=== PATIENT | male | born 1940 | race Caucasian/White ===

== ENCOUNTER 2017-04-29 18:40 | Observation (INO) | payer MEDICARE ==
[2017-04-29 19:24] LABS: CHLORIDE,CL 102 mEq/L (98-106); SODIUM,NA 141 mEq/L (136-145)
--- NOTE | 2017-04-29 20:00 | EDM.PDOC ---
ED HPI GENERAL MEDICAL PROBLEM - General Chief Complaint: General Stated Complaint: left facial swelling Time Seen by Provider: 04/29/17 18:55 Source of Information: Reports: Patient History Limitations: Reports: No Limitations - History of Present Illness INITIAL COMMENTS - FREE TEXT/NARRATIVE: Conor is a 76 yo male who presents to the ER via private vehicle with complaints of left facial droop. Conor states around 9:00am this morning he noticed his left eye to be watering. States he ate breakfast fine; however, at lunch he found it difficult to chew on the left side. At 2:00pm he was unable to drink out of his mouth on the left side and family noticed his left face to be drooping. He states he called into the clinic to make an appointment and scheduled one for later this week. Family this evening were insistent he come into the ER for further evaluation. States he has noticed his left lower leg to be numb. He has a history of CABG X 3 in 2008. States he has had high blood pressure for many years now as well. Currently takes 4 blood pressure medications. States he quit smoking in 1990. Admits to moderate amount of caffeine per day to include on average; 2 cups of coffee and 6 soda's per day. Location: Reports: Face, Lower Extremity, Left - Related Data Allergies Allergy/AdvReac Type Severity Reaction Status Date / Time amlodipine [From Norvasc] Allergy Unknown Confusion Verified 08/20/16 18:42 morphine Allergy Unknown Itching Verified 08/20/16 18:42 nifedipine [From Procardia] Allergy Unknown Confusion Verified 08/20/16 18:42 Sulfa (Sulfonamide Allergy Unknown Renal Verified 08/20/16 18:42 Antibiotics) Failure sulfamethoxazole Allergy Unknown Renal Verified 08/20/16 18:42 [From Bactrim] Failure trimethoprim [From Bactrim] Allergy Unknown Renal Verified 08/20/16 18:42 Failure cyclobenzaprine Allergy Other Verified 08/20/16 18:42 [From Flexeril] Home Meds: Home Meds Acetaminophen [Tylenol Extra Strength] 500 mg PO ASDIRECTED PRN 08/20/16 [ History] Ascorbic Acid [Vitamin C] 1 tab PO DAILY 08/20/16 [History] Aspirin 325 mg PO DAILY 08/20/16 [History] Docusate Sodium 100 mg PO BID 08/20/16 [History] Furosemide [Lasix] 40 mg PO DAILY 08/20/16 [History] Lisinopril [Prinivil] 10 mg PO BID 08/20/16 [History] Metoprolol Tartrate 50 mg PO BID 08/20/16 [History] Simvastatin [Zocor] 40 mg PO BEDTIME 08/20/16 [History] cloNIDine [Catapres] 0.2 mg PO BID 08/20/16 [History] Past Medical History Cardiovascular History: Reports: Bypass, High Cholesterol, Hypertension Respiratory History: Reports: SOB Hematologic History: Reports: Blood Transfusion(s) Oncologic (Cancer) History: Reports: Prostate Dermatologic History: Reports: Other (See Below) Other Dermatologic History: shingles - Infectious Disease History Infectious Disease History: Reports: MRSA, Shingles - Past Surgical History Cardiovascular Surgical History: Reports: Other (See Below) Other Cardiovascular Surgeries/Procedures: triple bypass surgery GI Surgical History: Reports: Hernia, Inguinal Male Surgical History: Reports: Prostate Biopsy, Prostatectomy Other Male Surgeries/Procedures: prostate cancer Musculoskeletal Surgical History: Reports: Other (See Below) Other Musculoskeletal Surgeries/Procedures:: back surgery Social & Family History - Tobacco Use Smoking Status *Q: Former Smoker Used Tobacco, but Quit: Yes Month Tobacco Last Used: 1990 - Caffeine Use Caffeine Use: Reports: Coffee - Recreational Drug Use Recreational Drug Use: No ED ROS GENERAL - Review of Systems Review Of Systems: See Below Constitutional: Denies: Fever, Chills, Weakness, Decreased Appetite HEENT: Reports: Eye Discharge (watery). Denies: Eye Pain, Vision Change Respiratory: Reports: Shortness of Breath (chronic). Denies: Wheezing, Cough Cardiovascular: Reports: Blood Pressure Problem. Denies: Chest Pain, Lightheadedness, Palpitations, Syncope GI/Abdominal: Denies: Abdominal Pain, Bloody Stool, Constipation, Diarrhea, Nausea, Vomiting : Reports: No Symptoms Musculoskeletal: Reports: No Symptoms Skin: Reports: No Symptoms Neurological: Reports: Numbness (left lower extremity). Denies: Confusion, Seizure, Syncope, Weakness Psychiatric: Reports: No Symptoms ED EXAM, GENERAL - Physical Exam Exam: See Below Exam Limited By: No Limitations General Appearance: Alert, No Apparent Distress (sitting comfortably on examination cart) Eye Exam: Left Eye: Proptosis, Bilateral Eye: EOMI, PERRL Ears: Normal External Exam, Normal Canal, Hearing Grossly Normal, Normal TMs Ear Exam: Bilateral Ear: Auricle Normal, Canal Normal, TM normal Nose: Normal Inspection, No Blood Throat/Mouth: Normal Lips, Normal Gums, Normal Oropharynx, Normal Voice, No Airway Compromise, Other (left lip droop) Head: Atraumatic, Normocephalic Neck: Normal Inspection, Supple. No: Carotid Bruit, Lymphadenopathy (L), Lymphadenopathy (R) Respiratory/Chest: No Respiratory Distress, Lungs Clear, No Accessory Muscle Use , Decreased Breath Sounds. No: Crackles, Rales, Rhonchi, Wheezing Cardiovascular: Normal Peripheral Pulses, Regular Rate, Rhythm, No Edema, No Murmur GI/Abdominal: Normal Bowel Sounds, Soft, Non-Tender, No Distention, No Abnormal Bruit Neurological: Alert, Oriented, Normal Cognition, Sensory/Motor Deficit (left lower leg weakness; drifts down but is able to hold against gravity. Coordination is clumsy in left finger to nose test. Diminished sensation to left lower extremity which terminates above the left knee. Normal sensation to left thigh and left upper extremity. ), Other (Obvious left sided facial droop. Unable to raise eyebrow on left. Able to shut left eye however unable to keep shut against resistance. ). No: Inattentive, Confused, Disoriented, Slow to Respond, Unresponsive, Memory Loss Remote Events, Memory Loss Recent Events Psychiatric: Normal Affect, Normal Mood Skin Exam: Warm, Dry, Intact, Normal Color Course - Vital Signs Last Recorded V/S: Last Vital Signs Temp 98.6 F 04/29/17 18:48 Pulse 71 04/29/17 19:33 Resp 18 04/29/17 19:12 BP 185/91 H 04/29/17 19:33 Pulse Ox 96 04/29/17 19:12 - Orders/Labs/Meds Orders: Active Orders 24 hr Category Date Time Status Head wo Cont [CT] Stat Exams 04/29/17 18:54 Taken INR,PT,PROTHROMBIN TIME [COAG] Stat Lab 04/29/17 18:54 Ordered PTT,PARTIAL THROMBOPLSTIN TIME [COAG] Stat Lab 04/29/17 18:54 Ordered UA W/MICROSCOPIC [URIN] Stat Lab 04/29/17 18:54 Uncollected Labs: Laboratory Tests 04/29/17 04/29/17 Range/Units 18:54 18:54 WBC 6.7 (5.0-10.0) 10^3/uL RBC 4.64 (4.50-6.00) 10^6/uL Hgb 14.8 (14.0-18.0) g/dL Hct 41.4 (40.0-54.0) % MCV 89.2 (82.0-94.0) fL MCH 31.9 (27.0-32.0) pg MCHC 35.7 (33.0-38.0) g/dL RDW Coeff of [place] 13.6 (11.0-15.0) % Plt Count 133 L (150-400) 10^3/uL Neut % (Auto) 56.1 (35-85) % Lymph % (Auto) 30.9 (10-55) % Jewell % (Auto) 9.6 (0-16) % Eos % (Auto) 2.8 (0-5) % Baso % (Auto) 0.6 (0-3) % Neut # (Auto) 3.74 (1.80-7.00) 10^3/uL Lymph # (Auto) 2.06 (1.00-4.80) 10^3/uL Jewell # (Auto) 0.64 (0.00-0.80) 10^3/uL Eos # (Auto) 0.19 (0.00-0.45) 10^3/uL Baso # (Auto) 0.04 10^3/uL Sodium 141 (136-145) mEq/L Potassium 3.6 (3.5-5.0) mEq/L Chloride 102 (98-106) mEq/L Carbon Dioxide 30 (21-32) mmol/L BUN 21 H (7-18) mg/dL Creatinine 1.4 H (0.7-1.3) mg/dL Est Cr Clr Drug Dosing 42.62 mL/min Estimated GFR (MDRD) 49 L (>=60) mL/min Glucose 119 H (75-99) mg/dL Calcium 9.0 (8.4-10.1) mg/dL Creatine Kinase 218 (35-232) U/L Troponin I < 0.017 (0.00-0.06) ng/mL Meds: Medications Discontinued Medications Generic Name Dose Route Start Last Admin Trade Name Freq PRN Reason Stop Dose Admin Alteplase, Recombinant Confirm 04/29/17 19:10 Activase Administered 04/29/17 19:11 Dose 100 mg .ROUTE .STK-MED ONE Departure - Departure Time of Disposition: 20:08 Disposition: Refer to Observation Condition: Good Clinical Impression: Serra's palsy, CVA, Cerebrovascular accident, Uncontrolled hypertension - Discharge Information - Problem List & Annotations (1) Uncontrolled hypertension SNOMED Code(s): 66126577 Code(s): I10 - ESSENTIAL (PRIMARY) HYPERTENSION Status: Acute Current Visit: Yes (2) Serra's palsy SNOMED Code(s): 497845107 Code(s): G51.0 - SERRA'S PALSY Status: Acute Current Visit: Yes (3) CVA, Cerebrovascular accident SNOMED Code(s): 521168340 Code(s): I63.9 - CEREBRAL INFARCTION, UNSPECIFIED Status: Acute Current Visit: Yes - My Orders Last 24 Hours: My Active Orders 04/29/17 18:54 Head wo Cont [CT] Stat INR,PT,PROTHROMBIN TIME [COAG] Stat PTT,PARTIAL THROMBOPLSTIN TIME [COAG] Stat UA W/MICROSCOPIC [URIN] Stat - Assessment/Plan Admission H&P: Please use this note as an admission H&P Last 24 Hours: My Active Orders 04/29/17 18:54 Head wo Cont [CT] Stat INR,PT,PROTHROMBIN TIME [COAG] Stat PTT,PARTIAL THROMBOPLSTIN TIME [COAG] Stat UA W/MICROSCOPIC [URIN] Stat Plan: EKG showed NSR at 74bpm. Laboratory work was stable. CT Head was negative for any acute changes per radiologist at [facility]. NIHSS score of 6. consulted with Dr. Leigh, neurologist, at [facility] in [place]. Dr. Leigh recommended observation tonight with follow up in clinic tomorrow. His clinic number was given and suppose to call his office between 8:00 and 8:30 tomorrow morning to confirm appointment. Dr. Leigh felt it was past the window to be given TPA and felt there was no further treatment tonight, besides monitoring blood pressure. Consulted with Dr. Vargas in regards to Conor condition and will admit to his services under observation. Dr. Vargas agreed with admission. Conor was advised of current plan and was in agreement.
[2017-04-29] MEDS ORDERED: Sodium Chloride 0.9% 10 ML Syringe FLUSH PRN (20:28)
[2017-04-29] MEDS ORDERED: Acetaminophen 500 MG Tab PO PRN (20:28)
[2017-04-29] MEDS ORDERED: Enoxaparin 40 MG/0.4 ML Syringe SUBCUT SCH (21:00)
[2017-04-29] MEDS ORDERED: cloNIDine 0.1 MG Tab PO SCH ×2 (21:00→22:30)
[2017-04-29] MEDS ORDERED: Simvastatin 40 MG Tab PO SCH (21:00)
[2017-04-29] MEDS: Metoprolol Tartrate 50 MG Tab PO SCH (21:58)
[2017-04-29] MEDS: Docusate Sodium 100 MG Cap PO SCH (22:36)
[2017-04-29] MEDS: Lisinopril 10 MG Tab PO SCH (22:36)
[2017-04-29] MEDS ORDERED: Enoxaparin 40 MG/0.4 ML Syringe ONE (22:43)
[2017-04-30 07:47] VITALS: BP 153/81
[2017-04-30] MEDS ORDERED: Isosorbide Mononitrate 30 MG Tab.ER PO SCH (08:00)
[2017-04-30] MEDS ORDERED: Aspirin 325 MG Tab PO SCH (08:00)
[2017-04-30] MEDS ORDERED: Furosemide 40 MG Tab PO SCH (08:00)
[2017-04-30] MEDS: Docusate Sodium 100 MG Cap PO SCH (09:14)
[2017-04-30] MEDS: Metoprolol Tartrate 50 MG Tab PO SCH (09:15)
[2017-04-30] MEDS: Lisinopril 10 MG Tab PO SCH (09:15)
--- NOTE | 2017-04-30 20:25 | PCM.DCSUM1 ---
Discharge Summary - Hospital Course Free Text/Narrative:: Patient presented to ER with concerns of left sided facial droop and numbness in his left leg. Does have history of hypertension, takes several meds for this. Initial work up was negative in regards to lab and CT of head. Kali did consult with Dr. Davis, neurologist, and advised to admit and watch neurological status but overall exam was suggestive for Suh's Palsy. - Discharge Data Discharge Date: 04/30/17 Discharge Disposition: Home, Self-Care 01 Condition: Good - Patient Summary/Data Complications: none Hospital Course: patient status stable. Left leg numbness resolved. States is ambulating well, no weakness noted in left leg. Continues to have left sided weakness, significant for Suh's Palsy. Blood pressure stable. Dr. Davis's office contacted this am and will see this afternoon for consultation. - Patient Instructions Diet: Usual Diet as Tolerated Activity: As Tolerated - Discharge Plan Home Medications: Home Meds Acetaminophen [Tylenol Extra Strength] 500 mg PO ASDIRECTED PRN 08/20/16 [ History] Ascorbic Acid [Vitamin C] 1 tab PO DAILY 08/20/16 [History] Aspirin 325 mg PO DAILY 08/20/16 [History] Docusate Sodium 100 mg PO BID 08/20/16 [History] Furosemide [Lasix] 40 mg PO DAILY 08/20/16 [History] Lisinopril [Prinivil] 10 mg PO BID 08/20/16 [History] Metoprolol Tartrate 50 mg PO BID 08/20/16 [History] Simvastatin [Zocor] 40 mg PO BEDTIME 08/20/16 [History] cloNIDine [Catapres] 0.2 mg PO BID 08/20/16 [History] Isosorbide Mononitrate [Isosorbide Mononitrate ER] 30 mg PO DAILY 04/29/17 [ History] Forms: ED Department Discharge Referrals: Ozzy Vargas MD [Primary Care Provider] - Jeremiah Davis MD [Ordering Only Provider] - (Follow up with Dr. Davis today at 1 pm per his direction) - General Info Date of Service: 04/30/17 Admission Dx/Problem (Free Text: Suh's Palsy R/O CVA Functional Status: Reports: Pain Controlled, Tolerating Diet, Ambulating - Review of Systems General: Denies: Fever, Weakness, Fatigue HEENT: Reports: No Symptoms Pulmonary: Denies: Shortness of Breath, Cough Cardiovascular: Denies: Chest Pain, Edema, Lightheadedness Gastrointestinal: Reports: Vomiting. Denies: Abdominal Pain, Nausea Genitourinary: Reports: No Symptoms Musculoskeletal: Reports: No Symptoms Neurological: Denies: Other (Patient complains of numbness to left cheek, "drools with eating". ) Psychiatric: Reports: No Symptoms - Patient Data Vitals - Most Recent: Last Vital Signs Temp 97.7 F 04/30/17 08:00 Pulse 60 04/30/17 08:00 Resp 20 04/30/17 08:00 BP 153/81 H 04/30/17 08:00 Pulse Ox 95 04/30/17 08:00 Weight - Most Recent: 247 lb 12.8 oz Med Orders - Current: Current Medications Discontinued Medications Acetaminophen (Tylenol Extra Strength) 500 mg PO Q6H PRN PRN Reason: Pain Last Admin: 04/30/17 00:18 Dose: 500 mg Alteplase, Recombinant (Activase) Confirm Administered Dose 100 mg .ROUTE .STABB- [employer] ONE Stop: 04/29/17 19:11 Last Admin: 04/29/17 20:50 Dose: Not Given Aspirin (Aspirin) 325 mg PO DAILY [facility] Last Admin: 04/30/17 09:14 Dose: Not Given Clonidine HCl (Catapres) 0.2 mg PO BID [facility] Last Admin: 04/29/17 22:35 Dose: Not Given Clonidine HCl (Catapres) 0.1 mg PO DAILY [facility] Last Admin: 04/29/17 22:36 Dose: 0.1 mg Docusate Sodium (Colace) 100 mg PO BID [facility] Last Admin: 04/30/17 09:14 Dose: Not Given Enoxaparin Sodium (Lovenox) 40 mg SUBCUT DAILY@1999 [facility] Last Admin: 04/29/17 23:00 Dose: 40 mg Enoxaparin Sodium (Lovenox) 40 mg SUBCUT DAILY@1999 [facility] Enoxaparin Sodium (Lovenox) Confirm Administered Dose 40 mg .ROUTE .STK-MED ONE Stop: 04/29/17 22:44 Last Admin: 04/29/17 23:01 Dose: Not Given Furosemide (Lasix) 40 mg PO DAILY [facility] Last Admin: 10/04/17 09:15 Dose: Not Given Isosorbide Mononitrate (Imdur) 30 mg PO DAILY [facility] Last Admin: 04/30/17 09:14 Dose: Not Given Lisinopril (Prinivil) 10 mg PO BID [facility] Last Admin: 04/30/17 09:15 Dose: Not Given Metoprolol Tartrate (Lopressor) 50 mg PO BID [facility] Last Admin: 04/30/17 09:15 Dose: Not Given Simvastatin (Zocor) 40 mg PO BEDTIME [facility] Last Admin: 04/29/17 21:58 Dose: 40 mg Sodium Chloride (Saline Flush) 10 ml FLUSH ASDIRECTED PRN PRN Reason: Keep Vein Open - Exam General: Reports: Alert, Oriented HEENT: Reports: Mucous Membr. Moist/Howe Neck: Reports: Supple Lungs: Reports: Clear to Auscultation, Normal Respiratory Effort Cardiovascular: Reports: Regular Rate, Regular Rhythm GI/Abdominal Exam: Normal Bowel Sounds, Soft, Non-Tender Extremities: Normal Inspection, Normal Range of Motion, Other Skin: Reports: Warm, Dry Neurological: Reports: Normal Gait, Other (no wrinkling noted to left forehead; left sided facial drooping; unable to close left eye lid fully) *Q Meaningful Use (DIS) - VTE *Q VTE Criteria *Q: - Stroke *Q Stroke Criteria *Q: - AMI *Q AMI Criteria *Q:
[2017-04-30] MEDS ORDERED: Enoxaparin 40 MG/0.4 ML Syringe SUBCUT SCH (21:00)
== END 2017-04-30 10:35 | disposition home or self-care (01) ==
LOC: CC.ED 18:40 → UNDOADMOB 20:20 → CC.MS 20:20
PROVIDERS: ADMIT Physician Assistant Medical; ATTEND Family Medicine
DX: G51.0 Bell's palsy (principal); I10 Essential (primary) hypertension; I63.9 Cerebral infarction, unspecified; E78.00 Pure hypercholesterolemia, unspecified; Z88.1 Allergy status to other antibiotic agents; Z88.2 Allergy status to sulfonamides; Z88.8 Allergy status to other drugs, medicaments and biological substances; Z79.82 Long term (current) use of aspirin; Z79.899 Other long term (current) drug therapy; Z98.890 Other specified postprocedural states; Z87.891 Personal history of nicotine dependence
CPT/HCPCS: 36415; 70450; 80048; 81001; 82550; 84484; 85025; 85610; 85730; 93005; 96372; 99285; A9270; G0378; J1650; 93010; 99217; 99220

== ENCOUNTER 2017-11-04 21:55 | Emergency (ER) | payer MEDICARE ==
[2017-11-04] MEDS ORDERED: Nitroglycerin 0.4 MG Tab.SL SL PRN (22:11)
[2017-11-04 22:33] LABS: CHLORIDE,CL 103 mEq/L (98-106); SODIUM,NA 142 mEq/L (136-145)
--- NOTE | 2017-11-04 23:11 | EDM.PDOC ---
ED HPI GENERAL MEDICAL PROBLEM - General Chief Complaint: Chest Pain Stated Complaint: CHEST PAIN Time Seen by Provider: 11/04/17 22:25 Source of Information: Reports: Patient History Limitations: Reports: No Limitations - History of Present Illness INITIAL COMMENTS - FREE TEXT/NARRATIVE: Conor is a 77 yo male who presents to the ER [facility] via private vehicle with complaints of left sided anterior chest pain. He states whenever he takes in a deep breath he will get the pain. Admits it started around 6:00pm while working at the [employer]. He admits it doesn't worsen with exertion, states only when he takes a deep breath. The pain has improved since onset. If he doesn 't take a deep breath the pain is not there at all. Admits it doesn't happen as often anymore. Has a history of cardiac disease with prior CABG so wanted to make sure it isn't heart related. He admits to having uncontrolled blood pressure for quite some time and takes 4 medicines for it. States he has otherwise has been dealing with some stress and anxiety from work. Feels this has a lot to do with it. Is requesting a note for [facility] and tomorrow, which he feels some rest would help. Onset Date: 11/04/17 Onset Time: 18:00 Duration: Improving Location: Reports: Chest Quality: Reports: Sharp Improves with: Reports: Other (shallow inspiration) Worsens with: Reports: Breathing (deep inspiration) Associated Symptoms: Reports: Chest Pain. Denies: Cough, cough w sputum, Fever/ Chills, Nausea/Vomiting, Shortness of Breath - Related Data Allergies Allergy/AdvReac Type Severity Reaction Status Date / Time amlodipine [From Norvasc] Allergy Unknown Confusion Verified 11/04/17 22:22 morphine Allergy Unknown Itching Verified 11/04/17 22:22 nifedipine [From Procardia] Allergy Unknown Confusion Verified 11/04/17 22:22 Sulfa (Sulfonamide Allergy Unknown Renal Verified 11/04/17 22:22 Antibiotics) Failure sulfamethoxazole Allergy Unknown Renal Verified 11/04/17 22:22 [From Bactrim] Failure trimethoprim [From Bactrim] Allergy Unknown Renal Verified 11/04/17 22:22 Failure cyclobenzaprine Allergy Other Verified 11/04/17 22:22 [From Flexeril] Home Meds: Home Meds Acetaminophen [Tylenol Extra Strength] 500 mg PO ASDIRECTED PRN 08/20/16 [ History] Ascorbic Acid [Vitamin C] 1 tab PO DAILY 08/20/16 [History] Aspirin 325 mg PO DAILY 08/20/16 [History] Docusate Sodium 100 mg PO BID 08/20/16 [History] Furosemide [Lasix] 40 mg PO DAILY 08/20/16 [History] Lisinopril [Prinivil] 20 mg PO DAILY 08/20/16 [History] Metoprolol Tartrate 50 mg PO BID 08/20/16 [History] Simvastatin [Zocor] 40 mg PO BEDTIME 08/20/16 [History] Isosorbide Mononitrate [Isosorbide Mononitrate ER] 30 mg PO DAILY 04/29/17 [ History] Brimonidine Tartrate [Alphagan P 0.1% Ophth Soln] 1 drop EYEBOTH Q12HR 11/04/17 [History] Brimonidine Tartrate [Brimonidine Tartrate 0.2% Ophth Soln] 1 drop OP Q12HR 05/14 [History] Latanoprost [Xalatan] 1 drop PO BEDTIME 11/04/17 [History] Neomycin/Polymyxin B Sulf/HC [Qlywmnfo-Nwlz-EH Eye Drops] 1 drop OP DAILY [History] Polyethylene Glycol 3350 [MiraLAX] 17 gm PO ASDIRECTED PRN 11/04/17 [History] Past Medical History Cardiovascular History: Reports: Bypass, High Cholesterol, Hypertension Respiratory History: Reports: SOB Neurological History: Reports: Other (See Below) (Suh's palsy) Hematologic History: Reports: Blood Transfusion(s) Oncologic (Cancer) History: Reports: Prostate Dermatologic History: Reports: Other (See Below) Other Dermatologic History: shingles - Infectious Disease History Infectious Disease History: Reports: MRSA, Shingles - Past Surgical History Cardiovascular Surgical History: Reports: Other (See Below) Other Cardiovascular Surgeries/Procedures: triple bypass surgery GI Surgical History: Reports: Hernia, Inguinal Male Surgical History: Reports: Prostate Biopsy, Prostatectomy Other Male Surgeries/Procedures: prostate cancer Musculoskeletal Surgical History: Reports: Other (See Below) Other Musculoskeletal Surgeries/Procedures:: back surgery Social & Family History - Tobacco Use Smoking Status *Q: Former Smoker Used Tobacco, but Quit: Yes Month/Year Tobacco Last Used: 1990 - Caffeine Use Caffeine Use: Reports: Coffee - Recreational Drug Use Recreational Drug Use: No ED ROS GENERAL - Review of Systems Review Of Systems: See Below Constitutional: Denies: Fever, Chills HEENT: Reports: No Symptoms Respiratory: Reports: Pleuritic Chest Pain. Denies: Shortness of Breath, Wheezing, Cough Cardiovascular: Reports: Chest Pain, Blood Pressure Problem. Denies: Dyspnea on Exertion, Edema, Lightheadedness, Palpitations GI/Abdominal: Reports: No Symptoms : Reports: No Symptoms Musculoskeletal: Denies: Shoulder Pain, Arm Pain Skin: Reports: No Symptoms. Denies: Diaphoresis Neurological: Reports: No Symptoms Psychiatric: Reports: Anxiety ED EXAM, GENERAL - Physical Exam Exam: See Below Exam Limited By: No Limitations General Appearance: Alert, WD/WN, No Apparent Distress Ears: Normal External Exam, Normal Canal, Normal TMs, Hearing Loss Nose: Normal Inspection, Normal Mucosa, No Blood Throat/Mouth: Normal Inspection, Normal Lips, Normal Teeth, Normal Gums, Normal Oropharynx, Normal Voice, No Airway Compromise Head: Atraumatic, Normocephalic Neck: Normal Inspection, Supple Respiratory/Chest: No Respiratory Distress, Lungs Clear, Normal Breath Sounds, No Accessory Muscle Use Cardiovascular: Normal Peripheral Pulses, Regular Rate, Rhythm, No Edema, No Gallop, No Murmur Peripheral Pulses: 1+: Dorsalis Pedis (L), Dorsalis Pedis (R) GI/Abdominal: Normal Bowel Sounds, Soft, No Distention, No Abnormal Bruit, No Mass Extremities: Normal Inspection, Normal Range of Motion EKG INTERPRETATION EKG Date: 11/04/17 Time: 22:15 Rhythm: NSR [place]: Normal QRS: Normal ST-T: Normal QT: Normal Course - Vital Signs Last Recorded V/S: Last Vital Signs Temp 98.8 F 11/04/17 22:00 Pulse 68 11/04/17 22:00 Resp 16 11/04/17 22:00 BP 178/102 H 11/04/17 22:00 Pulse Ox 95 11/04/17 22:00 - Orders/Labs/Meds Orders: Active Orders 24 hr Category Date Time Status EKG Documentation Completion [RC] STAT Care 11/04/17 22:13 Active Chest 2V [CR] Stat Exams 11/04/17 22:13 Taken Nitroglycerin [Nitrostat] Med 11/04/17 22:11 Active 0.4 mg SL Q5M PRN Medication Orders Nitroglycerin (Nitrostat) 0.4 mg SL Q5M PRN PRN Reason: Chest Pain Labs: Laboratory Tests 11/04/17 11/04/17 11/04/17 Range/Units 20:10 20:10 20:10 WBC 7.1 (5.0-10.0) 10^3/uL RBC 4.59 (4.50-6.00) 10^6/uL Hgb 14.1 (14.0-18.0) g/dL Hct 39.0 L (40.0-54.0) % MCV 85.0 (82.0-94.0) fL MCH 30.7 (27.0-32.0) pg MCHC 36.2 (33.0-38.0) g/dL RDW Coeff of [place] 14.0 (11.0-15.0) % Plt Count 126 L (150-400) 10^3/uL Neut % (Auto) 64.6 (35-85) % Lymph % (Auto) 26.2 (10-55) % [place] % (Auto) 7.3 (0-16) % Eos % (Auto) 1.5 (0-5) % Baso % (Auto) 0.4 (0-3) % Neut # (Auto) 4.61 (1.80-7.00) 10^3/uL Lymph # (Auto) 1.87 (1.00-4.80) 10^3/uL [place] # (Auto) 0.52 (0.00-0.80) 10^3/uL Eos # (Auto) 0.11 (0.00-0.45) 10^3/uL Baso # (Auto) 0.03 10^3/uL PT 10.2 (9.7-12.3) SEC INR 0.98 (0.92-1.18) APTT 25.3 (23.2-32.3) SEC Sodium 142 (136-145) mEq/L Potassium 3.2 L (3.5-5.0) mEq/L Chloride 103 (98-106) mEq/L Carbon Dioxide 27 (21-32) mmol/L BUN 21 H (7-18) mg/dL Creatinine 1.3 (0.7-1.3) mg/dL Est Cr Clr Drug Dosing 1.69 mL/min Estimated GFR (MDRD) 54 L (>=60) mL/min Glucose 125 H (75-99) mg/dL Calcium 9.0 (8.4-10.1) mg/dL Lactate Dehydrogenase 219 H (100-190) U/L Creatine Kinase 171 (35-232) U/L Troponin I < 0.017 (0.00-0.06) ng/mL Meds: Medications Generic Name Dose Route Start Last Admin Trade Name Freq PRN Reason Stop Dose Admin Nitroglycerin 0.4 mg 11/04/17 22:11 Nitrostat SL Q5M PRN Chest Pain Departure - Departure Time of Disposition: 23:18 Disposition: Home, Self-Care 01 Condition: Good Clinical Impression: Uncontrolled hypertension, Pain of anterior chest wall with respiration, Anxiety Instructions: Chest Wall Pain, [id number] Additional Instructions: 1) Rest tonight 2) Recommend taking extra 50mg tablet of Metoprolol tonight. 3) Discussed admission vs going home with instructions on going home. Advise if pain worsens, any new onset of symptoms... Need to return to ER. 4) Schedule appointment with Dr. Vargas for tomorrow 5) Declined medication for pleurisy 6) May call nurses station if any questions or concerns, [phone] - Problem List & Annotations (1) Pain of anterior chest wall with respiration SNOMED Code(s): 334625646 Code(s): R07.1 - CHEST PAIN ON BREATHING Status: Acute (2) Uncontrolled hypertension SNOMED Code(s): 86798890, 93790914 Code(s): I10 - ESSENTIAL (PRIMARY) HYPERTENSION Status: Acute (3) Anxiety SNOMED Code(s): 59782519 Code(s): F41.9 - ANXIETY DISORDER, UNSPECIFIED Status: Acute - Problem List Review Problem List Initiated/Reviewed/Updated: Yes - My Orders Last 24 Hours: My Active Orders 11/04/17 22:11 Nitroglycerin [Nitrostat] 0.4 mg SL Q5M PRN 11/04/17 22:13 EKG Documentation Completion [RC] STAT Chest 2V [CR] Stat - Assessment/Plan Last 24 Hours: My Active Orders 11/04/17 22:11 Nitroglycerin [Nitrostat] 0.4 mg SL Q5M PRN 11/04/17 22:13 EKG Documentation Completion [RC] STAT Chest 2V [CR] Stat Plan: Conor had an uneventful time in the ER. Pain completely subsided and was feeling a lot better. He was laughing and didn't appear to be in any distress. Discussed observation with past cardiac history, which he didn't feel was necessary. He elected to go home. Discussed differential etiologies to include; pleurisy, shingles and anxiety. All questions answered tonight. Will be discharged in satisfactory condition.
[2017-11-05 01:16] VITALS: BP 178/94
== END 2017-11-04 23:35 | disposition home or self-care (01) ==
LOC: CC.ED 21:55
DX: I10 Essential (primary) hypertension (principal); R07.89 Other chest pain; F41.9 Anxiety disorder, unspecified; E78.00 Pure hypercholesterolemia, unspecified; Z88.5 Allergy status to narcotic agent; Z88.2 Allergy status to sulfonamides; Z79.82 Long term (current) use of aspirin; Z87.891 Personal history of nicotine dependence
CPT/HCPCS: 36415; 71046; 80048; 82550; 83615; 84484; 85025; 85610; 85730; 93005; 99284

== ENCOUNTER 2017-11-17 09:20 | Emergency (ER) | payer MEDICARE ==
[2017-11-17] MEDS: cloNIDine 0.1 MG Tab PO ONE (09:37)
[2017-11-17 09:49] LABS: CHLORIDE,CL 104 mEq/L (98-106); SODIUM,NA 144 mEq/L (136-145)
[2017-11-17] MEDS ORDERED: Aspirin 81 MG Tab.EC PO ONE (10:01)
[2017-11-17] MEDS: Aspirin 81 MG Tab.Chew PO ONE (10:03)
--- NOTE | 2017-11-17 10:43 | EDM.PDOC ---
ED HPI GENERAL MEDICAL PROBLEM - General Chief Complaint: Chest Pain Stated Complaint: PAIN RT ARM/HIGH BLOOD PRESSURE Time Seen by Provider: 11/17/17 09:50 Source of Information: Reports: Patient History Limitations: Reports: No Limitations - History of Present Illness INITIAL COMMENTS - FREE TEXT/NARRATIVE: Conor is a 77 yo male who presents to the ER this morning with complaints of right sided chest pain radiating into his right shoulder/arm. He has been dealing with similar chest pain and uncontrolled hypertension. He was recently evaluated in the ER back on November 04 with similar symptoms. Pain was on the left side and into the left arm then. He has been dealing with a lot of stress/ anxiety with work. Admits to noticing the pain to worsen when he is scheduled to work. States he didn't have any pain thru the weekend until waking up this morning. States he was lying in bed when the pain started today. He denies any discomfort presently, feels it has completely resolved. States the pain did not worsen with exertion or any new onset of shortness of breath. Significant other is present as well and has been trying to get him to retire as he is always stressed about work. In regards to his high blood pressure, he is currently taking Lisinopril, Metoprolol and recently started on Imdur. He admits his blood pressure continues to be elevated. Has been checking at home and is usually 180ish/90's. Onset: Today Onset Date: 11/17/17 Onset Time: 20:00 Duration: Improving (resolved) Location: Reports: Chest Quality: Reports: Sharp Right Chest Pain Score (Numeric/FACES): 10 - Related Data Allergies Allergy/AdvReac Type Severity Reaction Status Date / Time amlodipine [From Norvasc] Allergy Unknown Confusion Verified 11/04/17 22:22 morphine Allergy Unknown Itching Verified 11/04/17 22:22 nifedipine [From Procardia] Allergy Unknown Confusion Verified 11/04/17 22:22 Sulfa (Sulfonamide Allergy Unknown Renal Verified 11/04/17 22:22 Antibiotics) Failure sulfamethoxazole Allergy Unknown Renal Verified 11/04/17 22:22 [From Bactrim] Failure trimethoprim [From Bactrim] Allergy Unknown Renal Verified 11/04/17 22:22 Failure Home Meds: Home Meds Acetaminophen [Tylenol Extra Strength] 500 mg PO ASDIRECTED PRN 08/20/16 [ History] Ascorbic Acid [Vitamin C] 1 tab PO DAILY 08/20/16 [History] Aspirin 325 mg PO DAILY 08/20/16 [History] Docusate Sodium 100 mg PO BID 08/20/16 [History] Furosemide [Lasix] 40 mg PO DAILY 08/20/16 [History] Lisinopril [Prinivil] 20 mg PO DAILY 08/20/16 [History] Metoprolol Tartrate 50 mg PO BID 08/20/16 [History] Simvastatin [Zocor] 40 mg PO BEDTIME 08/20/16 [History] Isosorbide Mononitrate [Isosorbide Mononitrate ER] 30 mg PO DAILY 04/29/17 [ History] Latanoprost [Xalatan 0.005% Ophth Soln] 1 drop PO BEDTIME 11/04/17 [History] Neomycin/Polymyxin B Sulf/HC [Arzemary-Nqwm-AT Eye Drops] 1 drop OP DAILY [History] Polyethylene Glycol 3350 [MiraLAX] 17 gm PO ASDIRECTED PRN 11/04/17 [History] Ibuprofen 400 mg PO DAILY 11/17/17 [History] cloNIDine [Catapres] 0.1 mg PO Q12HR 30 Days #60 tab 11/17/17 [Rx] Past Medical History HEENT History: Reports: Glaucoma, Hard of Hearing, Impaired Vision Cardiovascular History: Reports: Bypass, High Cholesterol, Hypertension Respiratory History: Reports: SOB Gastrointestinal History: Reports: None Genitourinary History: Reports: None Musculoskeletal History: Reports: None Neurological History: Reports: Other (See Below) Psychiatric History: Reports: Anxiety Endocrine/Metabolic History: Reports: None Hematologic History: Reports: Blood Transfusion(s) Oncologic (Cancer) History: Reports: Prostate Dermatologic History: Reports: Other (See Below) Other Dermatologic History: shingles - Infectious Disease History Infectious Disease History: Reports: MRSA, Shingles - Past Surgical History Cardiovascular Surgical History: Reports: Other (See Below) Other Cardiovascular Surgeries/Procedures: triple bypass surgery GI Surgical History: Reports: Hernia, Inguinal Male Surgical History: Reports: Prostate Biopsy, Prostatectomy Other Male Surgeries/Procedures: prostate cancer Endocrine Surgical History: Reports: None Musculoskeletal Surgical History: Reports: None, Other (See Below) Other Musculoskeletal Surgeries/Procedures:: back surgery Social & Family History - Family History Family Medical History: Noncontributory - Tobacco Use Smoking Status *Q: Never Smoker Used Tobacco, but Quit: Yes Month/Year Tobacco Last Used: 1990 - Caffeine Use Caffeine Use: Reports: Coffee - Recreational Drug Use Recreational Drug Use: No ED ROS GENERAL - Review of Systems Review Of Systems: See Below Constitutional: Denies: Fever, Chills, Diaphoresis HEENT: Reports: No Symptoms Respiratory: Denies: Shortness of Breath, Cough Cardiovascular: Reports: Chest Pain, Blood Pressure Problem. Denies: Dyspnea on Exertion, Edema, Lightheadedness, Palpitations GI/Abdominal: Reports: No Symptoms : Reports: No Symptoms Musculoskeletal: Reports: Shoulder Pain (right) ED EXAM, GENERAL - Physical Exam Exam: See Below Exam Limited By: No Limitations General Appearance: Alert, No Apparent Distress Ears: Normal External Exam, Normal Canal, Hearing Grossly Normal, Normal TMs Nose: Normal Inspection, No Blood Throat/Mouth: Normal Inspection, Normal Lips, Normal Teeth (dentures), Normal Gums, Normal Oropharynx, Normal Voice, No Airway Compromise Head: Atraumatic, Normocephalic Neck: Normal Inspection, Supple Respiratory/Chest: No Respiratory Distress, Lungs Clear, Normal Breath Sounds, No Accessory Muscle Use Cardiovascular: Normal Peripheral Pulses, Regular Rate, Rhythm, No Edema, No Gallop, No Murmur GI/Abdominal: Normal Bowel Sounds, Soft, Non-Tender, No Organomegaly Extremities: Normal Inspection, No Pedal Edema Neurological: Alert, Oriented, No Motor/Sensory Deficits Psychiatric: Normal Affect, Normal Mood Skin Exam: Warm, Dry, Intact, Normal Color, No Rash EKG INTERPRETATION EKG Date: 11/17/17 Rhythm: NSR [place]: LAD-Left [place] Deviation Comparison: No Change Course - Vital Signs Last Recorded V/S: Last Vital Signs Temp 97.9 F 11/17/17 09:39 Pulse 61 11/17/17 10:30 Resp 18 11/17/17 09:39 BP 120/78 11/17/17 10:30 Pulse Ox - Orders/Labs/Meds Orders: Active Orders 24 hr Category Date Time Status Chest 2V [CR] Stat Exams 11/17/17 09:31 Taken Labs: Laboratory Tests 11/17/17 11/17/17 11/17/17 Range/Units 09:25 09:25 09:25 WBC 6.6 (5.0-10.0) 10^3/uL RBC 4.75 (4.50-6.00) 10^6/uL Hgb 14.6 (14.0-18.0) g/dL Hct 41.2 (40.0-54.0) % MCV 86.7 (82.0-94.0) fL MCH 30.7 (27.0-32.0) pg MCHC 35.4 (33.0-38.0) g/dL RDW Coeff of [place] 14.2 (11.0-15.0) % Plt Count 124 L (150-400) 10^3/uL Neut % (Auto) 48.8 (35-85) % Lymph % (Auto) 39.3 (10-55) % [place] % (Auto) 9.1 (0-16) % Eos % (Auto) 2.3 (0-5) % Baso % (Auto) 0.5 (0-3) % Neut # (Auto) 3.20 (1.80-7.00) 10^3/uL Lymph # (Auto) 2.58 (1.00-4.80) 10^3/uL [place] # (Auto) 0.60 (0.00-0.80) 10^3/uL Eos # (Auto) 0.15 (0.00-0.45) 10^3/uL Baso # (Auto) 0.03 10^3/uL PT 9.9 (9.7-12.3) SEC INR 0.95 (0.92-1.18) APTT 25.0 (23.2-32.3) SEC Sodium 144 (136-145) mEq/L Potassium 3.7 (3.5-5.0) mEq/L Chloride 104 (98-106) mEq/L Carbon Dioxide 31 (21-32) mmol/L BUN 15 (7-18) mg/dL Creatinine 1.3 (0.7-1.3) mg/dL Est Cr Clr Drug Dosing 45.20 mL/min Estimated GFR (MDRD) 54 L (>=60) mL/min Glucose 125 H (75-99) mg/dL Calcium 9.0 (8.4-10.1) mg/dL Lactate Dehydrogenase 207 H (100-190) U/L Creatine Kinase 134 (35-232) U/L Troponin I < 0.017 (0.00-0.06) ng/mL Meds: Medications Discontinued Medications Generic Name Dose Route Start Last Admin Trade Name Myah PRN Reason Stop Dose Admin Aspirin 325 mg 11/17/17 10:01 Halfprin PO 11/17/17 10:02 ONETIME ONE Aspirin 324 mg 11/17/17 10:02 11/17/17 10:03 Aspirin PO 11/17/17 10:03 324 mg ONETIME ONE Administration Clonidine HCl 0.1 mg 11/17/17 09:31 11/17/17 09:37 Catapres PO 11/17/17 09:32 0.1 mg PREPRO ONE Administration - Re-Assessments/Exams Free Text/Narrative Re-Assessment/Exam: Conor has been asymptomatic in the ER. He was given .1mg of Clonidine which gradually brought his blood pressure down nicely. He admits he feels this is stress related again. We had a long discussion about his work and causing his chest pain. However, I do advise he follows up with Dr. Vargas for stress test as well. We will start him on .1mg of Clonidine BID today as well. Departure - Departure Time of Disposition: 10:47 Disposition: Home, Self-Care 01 Clinical Impression: Atypical chest pain, Uncontrolled hypertension, Stress at work Prescriptions: cloNIDine [Catapres] 0.1 mg PO Q12HR 30 Days #60 tab Instructions: Nonspecific Chest Pain, Jwlg-[id number], Hypertension, Lrgw-mz-Qomi , Managing Your Hypertension Forms: ED Department Discharge Additional Instructions: 1) Start clonidine .1mg twice a day, take evening dose tonight. 2) Rest 3) Recheck with Dr. Vargas in clinic this week and to schedule stress test. 4) Note given for work 5) If symptoms come back or any concerns at all, recommend returning to ER 6) May call nurses station if any questions, [phone] - Problem List & Annotations (1) Uncontrolled hypertension SNOMED Code(s): 81879365, [id number] Code(s): I10 - ESSENTIAL (PRIMARY) HYPERTENSION Status: Acute (2) Atypical chest pain SNOMED Code(s): 298850544 Code(s): R07.89 - OTHER CHEST PAIN Status: Acute (3) Stress at work SNOMED Code(s): 090450488 Code(s): Z56.6 - OTHER PHYSICAL AND MENTAL STRAIN RELATED TO WORK Status: Acute - Problem List Review Problem List Initiated/Reviewed/Updated: Yes - My Orders Last 24 Hours: My Active Orders 11/17/17 09:31 Chest 2V [CR] Stat - Assessment/Plan Last 24 Hours: My Active Orders 11/17/17 09:31 Chest 2V [CR] Stat Plan: Conor has been asymptomatic in ER. Will discharge home with further instructions and referral. Note given for work today to relax.
[2017-11-17 10:44] VITALS: BP 125/78
== END 2017-11-17 11:00 | disposition home or self-care (01) ==
LOC: CC.ED 09:20
DX: R07.89 Other chest pain (principal); I10 Essential (primary) hypertension; E78.00 Pure hypercholesterolemia, unspecified; Z79.899 Other long term (current) drug therapy; Z88.8 Allergy status to other drugs, medicaments and biological substances; Z88.2 Allergy status to sulfonamides; Z88.5 Allergy status to narcotic agent; Z88.1 Allergy status to other antibiotic agents; Z79.82 Long term (current) use of aspirin; Z56.6 Other physical and mental strain related to work
CPT/HCPCS: 36415; 71046; 80048; 82550; 83615; 84484; 85025; 85610; 85730; 93005; 99285; A9270-GY

== ENCOUNTER 2019-05-30 05:17 | Emergency (ER) | payer MEDICARE ==
[2019-05-30] MEDS ORDERED: fentaNYL 100 MCG/2 ML SDV IVPUSH ONE (05:40)
[2019-05-30] MEDS ORDERED: Ondansetron 4 MG/2 ML SDV IVPUSH PRN (05:40)
--- NOTE | 2019-05-30 05:51 | EDM.PDOC ---
ED HPI GENERAL MEDICAL PROBLEM - General Chief Complaint: Abdominal Pain Stated Complaint: RLQ pain Time Seen by Provider: 05/30/19 05:35 Source of Information: Reports: Patient - History of Present Illness INITIAL COMMENTS - FREE TEXT/NARRATIVE: This patient is a 78 year old male that comes from the [facility] emergency department home. Patient reports that at 3am this morning he woke up due to pain in the right lower abdomen, right groin, and right testicle. Patient reports that he got up at 3am with pain to urinate. Patient reports this is the last time he urinated. Patient reports the pain is constant. Patient reports it feels like he got kicked in the area. Onset: Today Onset Date: 05/30/19 Onset Time: 03:00 Location: Reports: Abdomen, Other (right groin, right testicle) Quality: Reports: Ache Severity: Moderate Improves with: Reports: None Worsens with: Reports: None Associated Symptoms: Denies: Confusion, Chest Pain, Cough, cough w sputum, Diaphoresis, Fever/Chills, Headaches, Loss of Appetite, Malaise, Nausea/Vomiting , Rash, Seizure, Shortness of Breath, Syncope, Weakness Right Lower Abdominal Pain Score (Numeric/FACES): 10 - Related Data Allergies Allergy/AdvReac Type Severity Reaction Status Date / Time amlodipine [From Norvasc] Allergy Unknown Confusion Verified 05/30/19 05:34 morphine Allergy Unknown Itching Verified 05/30/19 05:34 nifedipine [From Procardia] Allergy Unknown Confusion Verified 05/30/19 05:34 Sulfa (Sulfonamide Allergy Unknown Renal Verified 05/30/19 05:34 Antibiotics) Failure sulfamethoxazole Allergy Unknown Renal Verified 05/30/19 05:34 [From Bactrim] Failure trimethoprim [From Bactrim] Allergy Unknown Renal Verified 05/30/19 05:34 Failure Home Meds: Home Meds Acetaminophen [Tylenol Extra Strength] 500 mg PO ASDIRECTED PRN 08/20/16 [ History] Ascorbic Acid [Vitamin C] 1 tab PO DAILY 08/20/16 [History] Aspirin 325 mg PO DAILY 08/20/16 [History] Docusate Sodium 100 mg PO BID 08/20/16 [History] Furosemide [Lasix] 40 mg PO DAILY 08/20/16 [History] Lisinopril [Prinivil] 20 mg PO DAILY 08/20/16 [History] Metoprolol Tartrate 50 mg PO BID 08/20/16 [History] Simvastatin [Zocor] 40 mg PO BEDTIME 08/20/16 [History] Isosorbide Mononitrate [Isosorbide Mononitrate ER] 30 mg PO DAILY 04/29/17 [ History] Latanoprost [Xalatan 0.005% Ophth Soln] 1 drop PO BEDTIME 11/04/17 [History] Neomycin/Polymyxin B Sulf/HC [Agddhrwu-Zrsg-ZA Eye Drops] 1 drop OP DAILY [History] Polyethylene Glycol 3350 [MiraLAX] 17 gm PO ASDIRECTED PRN 11/04/17 [History] Ibuprofen 400 mg PO DAILY 11/17/17 [History] cloNIDine [Catapres] 0.1 mg PO Q12HR 30 Days #60 tab 11/17/17 [Rx] Past Medical History HEENT History: Reports: Glaucoma, Hard of Hearing, Impaired Vision Cardiovascular History: Reports: Bypass, High Cholesterol, Hypertension Respiratory History: Reports: SOB Gastrointestinal History: Reports: None Genitourinary History: Reports: Other (See Below) Other Genitourinary History: ing hernia surgery Musculoskeletal History: Reports: None Neurological History: Reports: Other (See Below) Other Neuro History: belles palsy Psychiatric History: Reports: Anxiety Endocrine/Metabolic History: Reports: None Hematologic History: Reports: Blood Transfusion(s) Oncologic (Cancer) History: Reports: Prostate Dermatologic History: Reports: Other (See Below) Other Dermatologic History: shingles - Infectious Disease History Infectious Disease History: Reports: MRSA, Shingles - Past Surgical History Cardiovascular Surgical History: Reports: Other (See Below) Other Cardiovascular Surgeries/Procedures: triple bypass surgery GI Surgical History: Reports: Hernia, Inguinal Male Surgical History: Reports: Prostate Biopsy, Prostatectomy Other Male Surgeries/Procedures: prostate cancer Endocrine Surgical History: Reports: None Musculoskeletal Surgical History: Reports: None, Other (See Below) Other Musculoskeletal Surgeries/Procedures:: back surgery Social & Family History - Family History Family Medical History: Noncontributory - Tobacco Use Smoking Status *Q: Never Smoker - Caffeine Use Caffeine Use: Reports: None ED ROS GENERAL - Review of Systems Review Of Systems: See Below Constitutional: Denies: Fever, Diaphoresis, Decreased Appetite HEENT: Reports: No Symptoms Respiratory: Reports: No Symptoms. Denies: Shortness of Breath Cardiovascular: Reports: No Symptoms. Denies: Chest Pain, Edema, Lightheadedness Endocrine: Reports: No Symptoms GI/Abdominal: Reports: Abdominal Pain (RLQ). Denies: Bloody Stool, Constipation , Diarrhea, Flatus, Hematemesis, Nausea, Vomiting : Reports: Pain (Right groin, right testicle. ). Denies: Discharge, Dysuria, Flank Pain, Frequency, Hematuria, Incontinence, Urgency, Urinary Retention Musculoskeletal: Reports: No Symptoms. Denies: Back Pain Skin: Reports: No Symptoms Neurological: Reports: No Symptoms Psychiatric: Reports: No Symptoms Hematologic/Lymphatic: Reports: No Symptoms Immunologic: Reports: No Symptoms ED EXAM, GI/ABD - Physical Exam Exam: See Below Exam Limited By: No Limitations General Appearance: Alert, WD/WN, No Apparent Distress Head: Atraumatic, Normocephalic Respiratory/Chest: No Respiratory Distress, Lungs Clear, Normal Breath Sounds, No Accessory Muscle Use Cardiovascular: Normal Peripheral Pulses, Regular Rate, Rhythm, No Edema, No Gallop, No JVD, No Murmur, No Rub GI/Abdominal Exam: Normal Bowel Sounds, Soft, No Organomegaly, No Distention, No Abnormal Bruit, No Mass, Pelvis Stable, Tender (RLQ mild) Back Exam: Normal Inspection, Full Range of Motion. No: CVA Tenderness (L), CVA Tenderness (R) Extremities: Normal Inspection, Non-Tender, No Pedal Edema, Normal Capillary Refill Neurological: Alert, Oriented, No Motor/Sensory Deficits Psychiatric: Normal Affect, Normal Mood Skin Exam: Warm, Dry, Intact, Normal Color, No Rash Course - Vital Signs Last Recorded V/S: Last Vital Signs Temp 95.8 F 05/30/19 05:17 Pulse 82 05/30/19 06:09 Resp 20 05/30/19 05:17 BP 160/86 H 05/30/19 06:09 Pulse Ox 97 05/30/19 05:17 - Orders/Labs/Meds Orders: Active Orders 24 hr Category Date Time Status Abdomen Pelvis wo Cont [CT] Stat Exams 05/30/19 05:55 Taken Ondansetron [Zofran] Med 05/30/19 05:40 Active 4 mg IVPUSH Q6H PRN Sodium Chloride 0.9% [Normal Saline] 500 ml Med 05/30/19 08:45 Active IV .BOLUS Medication Orders Sodium Chloride (Normal Saline) 500 mls @ 1,000 mls/hr IV .BOLUS JADON Last Admin: 05/30/19 09:03 Dose: 1,000 mls/hr Ondansetron HCl (Zofran) 4 mg IVPUSH Q6H PRN PRN Reason: Nausea/Vomiting Last Admin: 05/30/19 05:48 Dose: 4 mg Labs: Laboratory Tests 05/30/19 05/30/19 05/30/19 Range/Units 05:48 05:48 06:13 WBC 6.9 (5.0-10.0) 10^3/uL RBC 4.76 (4.50-6.00) 10^6/uL Hgb 14.8 (14.0-18.0) g/dL Hct 41.3 (40.0-54.0) % MCV 86.8 (82.0-94.0) fL MCH 31.1 (27.0-32.0) pg MCHC 35.8 (33.0-38.0) g/dL RDW Coeff of [place] 14.0 (11.0-15.0) % Plt Count 79 L (150-400) 10^3/uL Neut % (Auto) 51.2 (35-85) % Lymph % (Auto) 38.6 (10-55) % Walsh % (Auto) 7.5 (0-16) % Eos % (Auto) 2.3 (0-5) % Baso % (Auto) 0.4 (0-3) % Neut # (Auto) 3.53 (1.80-7.00) 10^3/uL Lymph # (Auto) 2.66 (1.00-4.80) 10^3/uL Walsh # (Auto) 0.52 (0.00-0.80) 10^3/uL Eos # (Auto) 0.16 (0.00-0.45) 10^3/uL Baso # (Auto) 0.03 10^3/uL Sodium 143 (136-145) mEq/L Potassium 3.5 (3.5-5.0) mEq/L Chloride 104 (98-106) mEq/L Carbon Dioxide 28 (21-32) mmol/L BUN 23 H (7-18) mg/dL Creatinine 1.4 H (0.7-1.3) mg/dL Est Cr Clr Drug Dosing 41.31 mL/min Estimated GFR (MDRD) 49 L (>=60) mL/min Glucose 164 H (75-99) mg/dL Calcium 8.6 (8.4-10.1) mg/dL Total Bilirubin 1.4 H (0.0-1.0) mg/dL AST 32 (15-37) U/L ALT 22 (12-78) U/L Alkaline Phosphatase 91 (46-116) U/L Total Protein 7.1 (6.4-8.2) g/dL Albumin 4.1 (3.4-5.0) g/dL Amylase 52 (25-115) U/L Lipase 231 (73-393) U/L Urine Color Yellow (YELLOW) Urine Appearance Clear (CLEAR) Urine pH 6.0 (4.5-8.0) Ur Specific [place] 1.020 (1.003-1.020) Urine Protein 100 H (NEGATIVE) mg/dL Urine Glucose (UA) Negative (NEGATIVE) mg/dL Urine Ketones Negative (NEGATIVE) mg/dL Urine Occult Blood Moderate H (NEGATIVE) Urine Nitrite Negative (NEGATIVE) Urine Bilirubin Negative (NEGATIVE) Urine Urobilinogen 0.2 (0.2-1.0) EU/dL Ur Leukocyte Esterase Negative (NEGATIVE) Urine RBC 20-30 H (0-5) /HPF Urine WBC 0-5 (0-5) /HPF Ur Epithelial Cells Few H (NOT SEEN) /HPF Meds: Medications Generic Name Dose Route Start Last Admin Trade Name Freq PRN Reason Stop Dose Admin Sodium Chloride 500 mls @ 1,000 mls/hr 05/30/19 08:45 05/30/19 09:03 Normal Saline IV 1,000 mls/hr .BOLUS JADON Administration Ondansetron HCl 4 mg 05/30/19 05:40 05/30/19 05:48 Zofran IVPUSH 4 mg Q6H PRN Administration Nausea/Vomiting Discontinued Medications Generic Name Dose Route Start Last Admin Trade Name Freq PRN Reason Stop Dose Admin Fentanyl 50 mcg 05/30/19 05:40 05/30/19 05:48 Sublimaze IVPUSH 05/30/19 05:41 50 mcg ONETIME ONE Administration - Radiology Interpretation Free Text/Narrative:: CT abd/pelvis without contrast: discussed with radiologist: moderate right hydronephrosis/hydroureter and perinephric stranding without obstructing calculus. Soft tissue density in the ventral adipose. bladder wall thickening. CT Results Date: 05/30/19 CT Results Time: 07:10 - Re-Assessments/Exams Free Text/Narrative Re-Assessment/Exam: 05/30/19 08:37 called and discussed with Dr. Romo urology at [facility]. He says to have patient f/u in clinic. 05/30/19 08:37 Patient is completely pain free. 0/10. 05/30/19 08:40 Patient reports he saw Dr. Mckeon in 2005 for his prostate cancer. He request not to see him again. Departure - Departure Time of Disposition: 08:37 Disposition: Home, Self-Care 01 Condition: Good Clinical Impression: Hydronephrosis of right kidney, Bladder wall thickening, Renal insufficiency - Discharge Information *PRESCRIPTION DRUG MONITORING PROGRAM REVIEWED*: Not Applicable *COPY OF PRESCRIPTION DRUG MONITORING REPORT IN PATIENT HARPAL: Not Applicable Instructions: Hydronephrosis Forms: ED Department Discharge Additional Instructions: Follow up with your primary care provider Call urology clinic for appointment: [phone] If you do not want to see previous urologist, ensure to ask for different urologist when making appointment Increase fluids Return to the ER for worsening of condition or any emergent concerns - My Orders Last 24 Hours: My Active Orders 05/30/19 05:40 Ondansetron [Zofran] 4 mg IVPUSH Q6H PRN 05/30/19 05:55 Abdomen Pelvis wo Cont [CT] Stat 05/30/19 08:45 Sodium Chloride 0.9% [Normal Saline] 500 ml IV .BOLUS - Assessment/Plan Last 24 Hours: My Active Orders 05/30/19 05:40 Ondansetron [Zofran] 4 mg IVPUSH Q6H PRN 05/30/19 05:55 Abdomen Pelvis wo Cont [CT] Stat 05/30/19 08:45 Sodium Chloride 0.9% [Normal Saline] 500 ml IV .BOLUS Plan: PLEASE SEE RN NOTE FOR PFSH.
[2019-05-30 06:10] VITALS: BP 160/86; PULSE 82
[2019-05-30] MEDS ORDERED: Sodium Chloride 0.9% 500 ML IV SCH (08:45)
== END 2019-05-30 09:25 | disposition home or self-care (01) ==
LOC: CC.ED 05:17
DX: N13.30 Unspecified hydronephrosis (principal); N28.9 Disorder of kidney and ureter, unspecified; N32.9 Bladder disorder, unspecified; E78.00 Pure hypercholesterolemia, unspecified; I10 Essential (primary) hypertension; Z88.2 Allergy status to sulfonamides; Z88.8 Allergy status to other drugs, medicaments and biological substances; Z88.1 Allergy status to other antibiotic agents; Z88.5 Allergy status to narcotic agent; Z79.82 Long term (current) use of aspirin; Z79.899 Other long term (current) drug therapy
CPT/HCPCS: 36415; 74176; 80053; 81001; 82150; 83690; 85025; 96361; 96374; 96375; 99284; J2405; J3010; J7040

== ENCOUNTER 2021-06-30 09:15 | Emergency (ER) | payer MEDICARE ==
[2021-06-30 09:31] VITALS: BP 166/83; PULSE 61
--- NOTE | 2021-06-30 10:38 | EDM.PDOC ---
ED HPI GENERAL MEDICAL PROBLEM - General Chief Complaint: Upper Extremity Injury/Pain Stated Complaint: left shoulder pain after a fall Time Seen by Provider: 06/30/21 09:20 Source of Information: Reports: Patient History Limitations: Reports: No Limitations - History of Present Illness INITIAL COMMENTS - FREE TEXT/NARRATIVE: Patient presents to the Ed for left shoulder injury. he states that he rolled over in bed early this morning and ended up on the ground. Had left shoulder pain immediately, but went back to bed. took some motrin for it. Is right handed, no previous injury. No weakness. otherwise is feeling well. Worried he broe something and could like an xray Onset: Today Location: Reports: Upper Extremity, Left Left Shoulder Pain Score (Numeric/FACES): 10 - Related Data Allergies Allergy/AdvReac Type Severity Reaction Status Date / Time amlodipine [From Norvasc] Allergy Unknown Confusion Verified 05/30/19 05:34 morphine Allergy Unknown Itching Verified 05/30/19 05:34 nifedipine [From Procardia] Allergy Unknown Confusion Verified 05/30/19 05:34 Sulfa (Sulfonamide Allergy Unknown Renal Verified 05/30/19 05:34 Antibiotics) Failure sulfamethoxazole Allergy Unknown Renal Verified 05/30/19 05:34 [From Bactrim] Failure trimethoprim [From Bactrim] Allergy Unknown Renal Verified 05/30/19 05:34 Failure brimonidine Allergy Cannot Verified 06/30/21 09:26 Remember cyclobenzaprine Allergy Cannot Verified 06/30/21 09:26 [From Flexeril] Remember Home Meds: Home Meds Acetaminophen [Tylenol Extra Strength] 500 mg PO ASDIRECTED PRN 08/20/16 [History] Ascorbic Acid [Vitamin C] 1 tab PO DAILY 08/20/16 [History] Aspirin 325 mg PO DAILY 08/20/16 [History] Docusate Sodium 100 mg PO BID 08/20/16 [History] Furosemide [Lasix] 40 mg PO DAILY 08/20/16 [History] Lisinopril [Prinivil] 20 mg PO DAILY 08/20/16 [History] Metoprolol Tartrate 50 mg PO BID 08/20/16 [History] Simvastatin [Zocor] 40 mg PO BEDTIME 08/20/16 [History] Isosorbide Mononitrate [Isosorbide Mononitrate ER] 30 mg PO DAILY 04/29/17 [History] Latanoprost [Xalatan 0.005% Ophth Soln] 1 drop PO BEDTIME 11/04/17 [History] Neomycin/Polymyxin B/Hydrocort [Yyutphea-Ogvg-WK Eye Drops] 1 drop OP DAILY 0 11/04/17 [History] polyethylene glycoL 3350 [MiraLAX] 17 gm PO ASDIRECTED PRN 11/04/17 [History] Ibuprofen 400 mg PO DAILY 11/17/17 [History] cloNIDine [Catapres] 0.1 mg PO Q12HR 30 Days #60 tab 11/17/17 [Rx] Past Medical History HEENT History: Reports: Glaucoma, Hard of Hearing, Impaired Vision Cardiovascular History: Reports: Bypass, High Cholesterol, Hypertension Respiratory History: Reports: SOB Gastrointestinal History: Reports: None Genitourinary History: Reports: Renal Disease, Other (See Below) Other Genitourinary History: ing hernia surgery Musculoskeletal History: Reports: None Neurological History: Reports: Other (See Below) Other Neuro History: belles palsy Psychiatric History: Reports: Anxiety Endocrine/Metabolic History: Reports: None Hematologic History: Reports: Blood Transfusion(s) Oncologic (Cancer) History: Reports: Prostate Dermatologic History: Reports: Other (See Below) Other Dermatologic History: shingles - Infectious Disease History Infectious Disease History: Reports: MRSA, Shingles - Past Surgical History Cardiovascular Surgical History: Reports: Other (See Below) Other Cardiovascular Surgeries/Procedures: triple bypass surgery GI Surgical History: Reports: Hernia, Inguinal Male Surgical History: Reports: Prostate Biopsy, Prostatectomy Other Male Surgeries/Procedures: prostate cancer Endocrine Surgical History: Reports: None Musculoskeletal Surgical History: Reports: None, Other (See Below) Other Musculoskeletal Surgeries/Procedures:: back surgery Social & Family History - Family History Family Medical History: No Pertinent Family History - Tobacco Use Tobacco Use Status *Q: Never Tobacco User - Caffeine Use Caffeine Use: Reports: None - Recreational Drug Use Recreational Drug Use: No Drug Use in Last 12 Months: No - Living Situation & Occupation Living situation: Reports: with Significant Other Review of Systems - Review of Systems Review Of Systems: See Below Constitutional: Reports: No Symptoms. Denies: Chills, Fever Eyes: Reports: No Symptoms. Denies: Previous Injury, Vision Change Ears: Reports: No Symptoms Nose: Reports: No Symptoms Mouth/Throat: Reports: No Symptoms Respiratory: Reports: No Symptoms. Denies: Shortness of Breath, Cough Cardiovascular: Reports: No Symptoms. Denies: Chest Pain, Edema GI/Abdominal: Reports: No Symptoms. Denies: Abdominal Pain Musculoskeletal: Reports: Joint Pain (left shoulder). Denies: Neck Pain, Back Pain Skin: Reports: No Symptoms Neurological: Reports: No Symptoms. Denies: Confusion, Headache ED EXAM, GENERAL - Physical Exam Exam: See Below Exam Limited By: No Limitations General Appearance: Alert, WD/WN Eye Exam: Bilateral Eye: EOMI, Normal Inspection Ears: Normal External Exam Nose: Normal Inspection Throat/Mouth: Normal Inspection Head: Atraumatic Neck: Normal Inspection, Supple, Full Range of Motion, Tender Lateral (mild pain to palpation of the elft trapezius). No: Tender Midline Respiratory/Chest: No Respiratory Distress, Lungs Clear, Normal Breath Sounds, Chest Non-Tender Cardiovascular: Regular Rate, Rhythm, No Edema Back Exam: Normal Inspection. No: Vertebral Tenderness (no pain to palpation of the T spine and ribs on the left posterior chest wall) Extremities: Limited Range of Motion (pain at insertion of the rotator cuff tendons, anterior shoulder on the left. ), Other (focused examination of the left upper extremity in comparison of the rigth upper extremity. Normal advertising account manager strength bilaterally, normal push, pull. positiv supraspinatus testing on the left, pain with abduction of the left shoulder, would not allow to be placed in apprehension position. ) Neurological: Alert, Oriented Psychiatric: Normal Affect #1 Interpretation EKG Date: 06/30/21 Time: 09:25 Rhythm: NSR Rate (Beats/Min): 59 Brooks: Normal P-Wave: Present QRS: Normal ST-T: Normal QT: Normal Comparison: NA - No Prior EKG EKG Interpretation Comments: artifact in V1, no STEMI Course - Vital Signs Last Recorded V/S: Last Vital Signs Temp 35.7 C L 06/30/21 09:15 Pulse 61 06/30/21 09:15 Resp 18 06/30/21 09:15 BP 166/83 H 06/30/21 09:15 Pulse Ox 97 06/30/21 09:15 - Orders/Labs/Meds Orders: Active Orders 24 hr Category Date Time Status Shoulder Comp Lt [CR] Stat Exams 06/30/21 09:30 Taken - Radiology Interpretation Free Text/Narrative:: x-ray left shoulder with djd, no acute, interpreted by radiology - Re-Assessments/Exams Free Text/Narrative Re-Assessment/Exam: 06/30/21 Patient appears to have a rotator cuff injury. discussed some simple codmans exercises with him for the weekend. Given information on this. Referral to physical therapy next week. Offered sling and pain medication, declined. Departure - Departure Time of Disposition: 09:30 Disposition: Home, Self-Care 01 Condition: Good Clinical Impression: Rotator cuff (capsule) sprain - Discharge Information *PRESCRIPTION DRUG MONITORING PROGRAM REVIEWED*: Not Applicable *COPY OF PRESCRIPTION DRUG MONITORING REPORT IN PATIENT HARPAL: Not Applicable Instructions: Rotator Cuff Tendinitis, Shoulder Range of Motion Exercises Forms: ED Department Discharge Additional Instructions: ice the area, take ibuprofen 400-600 mg every 6 hours as needed for pain. You were shown how to do arm swings to keep motion in the shoulder. Do this several times a day. You were given a prescription for physical therapy. make appointment for follow up, exercises and pain control Sepsis Event Note (ED) - Evaluation Sepsis Screening Result: No Definite Risk - Focused Exam Vital Signs: Vital Signs Temp Pulse Resp BP Pulse Ox 06/30/21 09:15 35.7 C L 61 18 166/83 H 97 - My Orders Last 24 Hours: My Active Orders 06/30/21 09:30 Shoulder Comp Lt [CR] Stat - Assessment/Plan Last 24 Hours: My Active Orders 06/30/21 09:30 Shoulder Comp Lt [CR] Stat
== END 2021-06-30 10:00 | disposition home or self-care (01) ==
LOC: CC.ED 09:15
DX: S43.422A Sprain of left rotator cuff capsule, initial encounter (principal); E78.00 Pure hypercholesterolemia, unspecified; I10 Essential (primary) hypertension; Z88.5 Allergy status to narcotic agent; Z88.2 Allergy status to sulfonamides; Z88.1 Allergy status to other antibiotic agents; Z88.8 Allergy status to other drugs, medicaments and biological substances; Z79.82 Long term (current) use of aspirin; Z79.899 Other long term (current) drug therapy; Z95.1 Presence of aortocoronary bypass graft; X50.1XXA Overexertion from prolonged static or awkward postures, initial encounter
CPT/HCPCS: 73030-LT; 93005; 99283-25

== ENCOUNTER 2022-01-19 07:37 | Emergency (ER) | payer MEDICARE ==
[2022-01-19] MEDS: fentaNYL 50 MCG/ML SDV IVPUSH ONE ×2 (08:19→13:07)
[2022-01-19] MEDS: HYDROmorphone 1 MG/ML Syringe ONE (08:30)
[2022-01-19] MEDS: Ondansetron 4 MG/2 ML SDV ONE (08:30)
[2022-01-19] MEDS: Ondansetron 4 MG/2 ML SDV IVPUSH ONE (08:30)
[2022-01-19] MEDS: cloNIDine 0.1 MG Tab PO ONE (09:15)
[2022-01-19] MEDS: Potassium Chloride 10 MEQ Tab.ER PO ONE (09:15)
[2022-01-19] MEDS: Sodium Chloride 0.9% 250 ML IV SCH (13:08)
[2022-01-19 14:40] VITALS: BP 178/89; PULSE 82
== END 2022-01-19 15:19 ==
LOC: CC.ED 07:37
DX: N13.2 Hydronephrosis with renal and ureteral calculous obstruction (principal); E78.00 Pure hypercholesterolemia, unspecified; I10 Essential (primary) hypertension; Z95.1 Presence of aortocoronary bypass graft; Z88.5 Allergy status to narcotic agent; Z88.2 Allergy status to sulfonamides; Z88.1 Allergy status to other antibiotic agents; Z88.8 Allergy status to other drugs, medicaments and biological substances; Z79.82 Long term (current) use of aspirin; Z79.899 Other long term (current) drug therapy
CPT/HCPCS: 36415; 74176; 80053; 81001; 83735; 85025; 96361; 96374; 96375; 96376; 99284; 99285-25; A9270-GY; J2405; J3010; J7050

== ENCOUNTER 2022-07-07 00:12 | Inpatient (IN) | payer MEDICARE ==
[2022-07-07] MEDS ORDERED: Acetaminophen 325 MG Tab PO ONE (01:29)
[2022-07-07 01:39] LABS: CORONAVIRUS COVID-19 NAA NEGATIVE (NEGATIVE); RESPIRATORY SYNCYTIAL VIR NAA NEGATIVE (NEGATIVE)
[2022-07-07] MEDS ORDERED: Acetaminophen 650 MG Supp RECTAL PRN (02:16)
[2022-07-07] MEDS ORDERED: Ondansetron 4 MG/2 ML SDV IV PRN (02:16)
[2022-07-07] MEDS ORDERED: Acetaminophen/HYDROcodone 325-5 MG Tab PO PRN (02:28)
[2022-07-07] MEDS ORDERED: Azithromycin 500 MG in Sodium Chloride 0.9% 250 ML IV SCH (02:30)
[2022-07-07] MEDS ORDERED: Sodium Chloride 0.9% 1,000 ML IV SCH (02:30)
[2022-07-07] MEDS ORDERED: cefTRIAXone 1 GM Vial IVPUSH SCH (02:30)
[2022-07-07] MEDS ORDERED: cloNIDine 0.1 MG Tab PO ONE (02:45)
[2022-07-07] MEDS: Oseltamivir 30 MG Cap PO SCH ×3 (03:07→20:16)
[2022-07-07] MEDS ORDERED: [UNRECOGNIZED DRUG - OTHER] PO SCH (08:00)
[2022-07-07] MEDS ORDERED: ERGOCALCIFEROL 50000 UNIT PO SCH (08:00)
[2022-07-07] MEDS: Apixaban 5 MG Tab PO SCH ×2 (08:21→20:14)
[2022-07-07] MEDS: Docusate Sodium 100 MG Cap PO SCH ×2 (08:21→20:15)
[2022-07-07] MEDS: Acetaminophen 325 MG Tab PO PRN (08:21)
[2022-07-07] MEDS: Potassium Chloride 10 MEQ Tab.ER PO SCH ×2 (08:22→20:16)
[2022-07-07] MEDS: Furosemide 40 MG Tab PO SCH (08:22)
[2022-07-07] MEDS: Metoprolol Tartrate 50 MG Tab PO SCH ×2 (08:24→20:14)
[2022-07-07] MEDS: Isosorbide Mononitrate 30 MG Tab.ER PO SCH (08:24)
[2022-07-07] MEDS: cloNIDine 0.1 MG Tab PO SCH ×2 (08:25→21:05)
[2022-07-07] MEDS ORDERED: Enoxaparin 40 MG/0.4 ML Syringe SUBCUT SCH (20:00)
[2022-07-07] MEDS: Lisinopril 10 MG Tab PO SCH (20:15)
[2022-07-07] MEDS: Simvastatin 40 MG Tab PO SCH (20:15)
[2022-07-07] MEDS: Latanoprost 0.005% Ophth Soln 2.5 ML Bottle EYEBOTH SCH (20:16)
[2022-07-07] MEDS: cefTRIAXone 1 GM Vial IVPUSH SCH (20:17)
[2022-07-07] MEDS: Azithromycin 500 MG in Sodium Chloride 0.9% 250 ML IV SCH (20:17)
[2022-07-08] MEDS: Furosemide 40 MG Tab PO SCH (07:45)
[2022-07-08] MEDS: Potassium Chloride 10 MEQ Tab.ER PO SCH ×2 (07:45→19:53)
[2022-07-08] MEDS: Apixaban 5 MG Tab PO SCH ×2 (07:46→19:53)
[2022-07-08] MEDS: Oseltamivir 30 MG Cap PO SCH ×2 (07:46→19:55)
[2022-07-08] MEDS: Docusate Sodium 100 MG Cap PO SCH ×2 (07:46→19:53)
[2022-07-08] MEDS: Metoprolol Tartrate 50 MG Tab PO SCH ×2 (07:47→19:54)
[2022-07-08] MEDS: Isosorbide Mononitrate 30 MG Tab.ER PO SCH (07:47)
[2022-07-08] MEDS: cloNIDine 0.1 MG Tab PO SCH ×2 (08:01→20:00)
[2022-07-08] MEDS: Acetaminophen 325 MG Tab PO PRN ×2 (12:40→23:30)
[2022-07-08] MEDS: cefTRIAXone 1 GM Vial IVPUSH SCH (19:46)
[2022-07-08] MEDS: Azithromycin 500 MG in Sodium Chloride 0.9% 250 ML IV SCH (19:49)
[2022-07-08] MEDS: Lisinopril 10 MG Tab PO SCH (19:54)
[2022-07-08] MEDS: Simvastatin 40 MG Tab PO SCH (19:55)
[2022-07-08] MEDS: Latanoprost 0.005% Ophth Soln 2.5 ML Bottle EYEBOTH SCH (19:56)
[2022-07-09] MEDS: Potassium Chloride 10 MEQ Tab.ER PO SCH (07:35)
[2022-07-09] MEDS: Acetaminophen 325 MG Tab PO PRN (07:35)
[2022-07-09] MEDS: Isosorbide Mononitrate 30 MG Tab.ER PO SCH (07:35)
[2022-07-09] MEDS: Metoprolol Tartrate 50 MG Tab PO SCH (07:35)
[2022-07-09] MEDS: Oseltamivir 30 MG Cap PO SCH (07:35)
[2022-07-09] MEDS: Apixaban 5 MG Tab PO SCH (07:36)
[2022-07-09] MEDS: Docusate Sodium 100 MG Cap PO SCH (07:36)
[2022-07-09] MEDS: Furosemide 40 MG Tab PO SCH (07:36)
[2022-07-09 08:26] VITALS: BP 156/89
[2022-07-09] MEDS: cloNIDine 0.1 MG Tab PO SCH (08:26)
[2022-07-09 08:27] VITALS: PULSE 71
== END 2022-07-09 10:58 | disposition home or self-care (01) | DRG 195 ==
LOC: CC.ED 00:12 → CC.MS 01:15 → UNDOADMIN 01:15 → CC.MS 01:35 → CC.ED 01:44
PROVIDERS: ADMIT Nurse Practitioner Family; ATTEND Nurse Practitioner Family
DX: J12.9 Viral pneumonia, unspecified (principal); R53.1 Weakness; E78.00 Pure hypercholesterolemia, unspecified; Z95.1 Presence of aortocoronary bypass graft; J10.00 Influenza due to other identified influenza virus with unspecified type of pneumonia; N28.9 Disorder of kidney and ureter, unspecified; I10 Essential (primary) hypertension; Z88.1 Allergy status to other antibiotic agents; F41.9 Anxiety disorder, unspecified; I11.0 Hypertensive heart disease with heart failure; Z79.01 Long term (current) use of anticoagulants; I50.9 Heart failure, unspecified; G51.0 Bell's palsy; Z20.822 Contact with and (suspected) exposure to COVID-19; Z86.73 Personal history of transient ischemic attack (TIA), and cerebral infarction without residual deficits; Z85.46 Personal history of malignant neoplasm of prostate; Z88.5 Allergy status to narcotic agent; Z88.2 Allergy status to sulfonamides; Z79.899 Other long term (current) drug therapy; Z88.8 Allergy status to other drugs, medicaments and biological substances
CPT/HCPCS: 0241U; 36415; 71045; 80053; 83605; 83735; 84484; 85025; 85027; 86140; 87040; 87070; 97161-GP; 99285; A9270-GY; J0456; J0696; J7050

== ENCOUNTER 2022-10-29 10:11 | Inpatient (IN) | payer MEDICARE ==
[2022-10-29] MEDS ORDERED: Ondansetron 4 MG Tab.DIS PO PRN (10:44)
[2022-10-29] MEDS ORDERED: Acetaminophen 325 MG Tab PO PRN (10:44)
[2022-10-29] MEDS ORDERED: Sodium Chloride 0.9% 10 ML Syringe FLUSH PRN (10:44)
[2022-10-29] MEDS ORDERED: Docusate Sodium 100 MG Cap PO PRN (10:44)
[2022-10-29] MEDS ORDERED: Albuterol/Ipratropium 3.0-0.5 MG/3 ML Neb Soln NEB PRN (10:44)
[2022-10-29] MEDS ORDERED: Polyethylene Glycol 3350 Powder 17 GM Packet PO PRN ×2 (10:44→11:58)
[2022-10-29 11:19] LABS: CHLORIDE,CL 103 mEq/L (98-106); SODIUM,NA 143 mEq/L (136-145)
[2022-10-29 11:20] LABS: ESTIMATED GFR 33 mL/min (>=60)
[2022-10-29 11:44] LABS: CORONAVIRUS COVID-19 NAA NEGATIVE (NEGATIVE); RESPIRATORY SYNCYTIAL VIR NAA NEGATIVE (NEGATIVE)
[2022-10-29] MEDS ORDERED: Acetaminophen/HYDROcodone 325-5 MG Tab PO PRN (11:58)
[2022-10-29] MEDS ORDERED: Phenazopyridine 95 MG Tab PO PRN (11:58)
[2022-10-29] MEDS ORDERED: Furosemide 20 MG/2 ML VIAL IVPUSH SCH (13:00)
[2022-10-29] MEDS: cloNIDine 0.1 MG Tab PO SCH ×3 (13:34→19:34)
[2022-10-29] MEDS: Acetaminophen 500 MG Tab PO PRN (17:29)
[2022-10-29] MEDS: Potassium Chloride 10 MEQ Tab.ER PO SCH (19:35)
[2022-10-29] MEDS: Simvastatin 40 MG Tab PO SCH (19:35)
[2022-10-29] MEDS: Docusate Sodium 100 MG Cap PO SCH (19:35)
[2022-10-29] MEDS: Lisinopril 10 MG Tab PO SCH (19:35)
[2022-10-29] MEDS: Metoprolol Tartrate 50 MG Tab PO SCH (19:35)
[2022-10-29] MEDS: Latanoprost 0.005% Ophth Soln 2.5 ML Bottle EYEBOTH SCH (19:37)
[2022-10-30] MEDS: Acetaminophen 500 MG Tab PO PRN ×3 (02:42→21:45)
[2022-10-30] MEDS: cloNIDine 0.1 MG Tab PO SCH ×2 (07:33→19:36)
[2022-10-30] MEDS: Metoprolol Tartrate 50 MG Tab PO SCH ×2 (07:33→19:36)
[2022-10-30] MEDS: Docusate Sodium 100 MG Cap PO SCH ×2 (07:33→19:36)
[2022-10-30] MEDS: Isosorbide Mononitrate 30 MG Tab.ER PO SCH (07:33)
[2022-10-30] MEDS: Oxybutynin 5 MG Tab.ER PO SCH (07:34)
[2022-10-30] MEDS: Furosemide 20 MG Tab PO SCH (07:34)
[2022-10-30] MEDS: Potassium Chloride 10 MEQ Tab.ER PO SCH ×2 (07:34→19:36)
[2022-10-30] MEDS: Simvastatin 40 MG Tab PO SCH (19:36)
[2022-10-30] MEDS: Lisinopril 10 MG Tab PO SCH (19:36)
[2022-10-30] MEDS: Latanoprost 0.005% Ophth Soln 2.5 ML Bottle EYEBOTH SCH (19:38)
[2022-10-31] MEDS: Acetaminophen 500 MG Tab PO PRN (02:50)
[2022-10-31] MEDS: Potassium Chloride 10 MEQ Tab.ER PO SCH (07:23)
[2022-10-31] MEDS: Isosorbide Mononitrate 30 MG Tab.ER PO SCH (07:23)
[2022-10-31] MEDS: Docusate Sodium 100 MG Cap PO SCH (07:23)
[2022-10-31] MEDS: Oxybutynin 5 MG Tab.ER PO SCH (07:24)
[2022-10-31] MEDS: Metoprolol Tartrate 50 MG Tab PO SCH (07:24)
[2022-10-31] MEDS: cloNIDine 0.1 MG Tab PO SCH (07:24)
[2022-10-31] MEDS: Furosemide 20 MG Tab PO SCH (07:24)
[2022-10-31] MEDS ORDERED: cefTRIAXone 1 GM Vial IVPUSH ONE (09:30)
[2022-10-31 14:44] VITALS: BP 139/75; PULSE 68
== END 2022-10-31 14:20 | disposition home or self-care (01) | DRG 293 ==
LOC: CC.MS 10:14
PROVIDERS: ADMIT Nurse Practitioner Family; ATTEND Nurse Practitioner Family
DX: I13.0 Hypertensive heart and chronic kidney disease with heart failure and stage 1 through stage 4 chronic kidney disease, or unspecified chronic kidney disease (principal); N18.9 Chronic kidney disease, unspecified; I50.9 Heart failure, unspecified; Z20.822 Contact with and (suspected) exposure to COVID-19; H91.90 Unspecified hearing loss, unspecified ear; I48.91 Unspecified atrial fibrillation; E78.00 Pure hypercholesterolemia, unspecified; H40.9 Unspecified glaucoma; F41.9 Anxiety disorder, unspecified; E66.9 Obesity, unspecified; Z79.01 Long term (current) use of anticoagulants; Z79.899 Other long term (current) drug therapy; Z95.1 Presence of aortocoronary bypass graft; Z79.890 Hormone replacement therapy; Z85.46 Personal history of malignant neoplasm of prostate; Z85.53 Personal history of malignant neoplasm of renal pelvis; Z98.890 Other specified postprocedural states; Z88.5 Allergy status to narcotic agent; Z88.8 Allergy status to other drugs, medicaments and biological substances; Z92.21 Personal history of antineoplastic chemotherapy; Z68.35 Body mass index [BMI] 35.0-35.9, adult
CPT/HCPCS: 0241U; 36415; 71046; 80053; 81001; 82150; 83605; 83690; 83880; 85025; 85610; 87070; 87077; 87186; 87205; 97110-GP; 97161-GP; 99223; 99233; 99239; A9270-GY; J0696; J1940

== ENCOUNTER 2022-12-21 21:55 | Emergency (ER) | payer MEDICARE ==
[2022-12-21 21:58] VITALS: PULSE 88
[2022-12-21 22:30] LABS: BILIRUBIN,URINE NEGATIVE (NEGATIVE); COLOR,URINE YELLOW (YELLOW); GLUCOSE,URINE NEGATIVE (NEGATIVE); KETONES,URINE NEGATIVE (NEGATIVE); LEUKOCYTE ESTERASE,URINE SMALL (NEGATIVE); NITRITE,URINE POSITIVE (NEGATIVE); OCCULT BLOOD,URINE LARGE (NEGATIVE); PROTEIN,URINE 100 mg/dL (NEGATIVE); UROBILINOGEN,URINE 0.2 EU/dL (0.2-1.0)
[2022-12-21 22:31] LABS: APPEARANCE,URINE SLIGHTLY CLOUDY (CLEAR)
[2022-12-21 22:38] LABS: BACTERIA,URINE FEW /HPF (NOT SEEN); EPITHELIAL CELLS,URINE OCCASIONAL /HPF (NOT SEEN); RBC,URINE 50-75 /HPF (0-5); WBC CLUMPS,URINE OCCASIONAL /HPF (NOT SEEN)
[2022-12-21 23:02] VITALS: BP 163/81
== END 2022-12-21 23:02 | disposition home or self-care (01) ==
LOC: CC.ED 21:55
DX: N39.0 Urinary tract infection, site not specified (principal); E78.00 Pure hypercholesterolemia, unspecified; I10 Essential (primary) hypertension; Z46.6 Encounter for fitting and adjustment of urinary device; Z88.8 Allergy status to other drugs, medicaments and biological substances; Z88.5 Allergy status to narcotic agent; Z88.1 Allergy status to other antibiotic agents; Z88.2 Allergy status to sulfonamides; Z79.899 Other long term (current) drug therapy
CPT/HCPCS: 51702; 81001; 87086; 99283; 99284

== ENCOUNTER 2023-05-16 09:06 | Emergency (ER) | payer MEDICARE, MEDICAID, OTHER ==
[2023-05-16 09:18] VITALS: BP 134/59; PULSE 76
[2023-05-16] MEDS ORDERED: Albuterol/Ipratropium 3.0-0.5 MG/3 ML Neb Soln NEB ONE (09:37)
[2023-05-16 09:50] LABS: BASOPHILS ABSOLUTE AUTO 0.03 10^3/uL (0.00-0.50); BASOPHILS PERCENT AUTO 0.3 % (0-1); HEMATOCRIT 26.5 % (42.0-52.0); HEMOGLOBIN 8.8 g/dL (14.0-18.0); IMMATURE GRAN ABSOLUTE AUTO 0.03 10^3/uL (0.00-0.49); IMMATURE GRAN PERCENT AUTO 0.3 % (0.0-4.9); LYMPHOCYTES ABSOLUTE AUTO 1.95 10^3/uL (0.60-5.00); LYMPHOCYTES PERCENT AUTO 20.3 % (24-44); MEAN CORPUSCULAR HEMOGLOBIN 27.4 pg (27.0-32.0); MEAN CORPUSCULAR HGB CONC 33.2 g/dL (32.0-36.0); MEAN CORPUSCULAR VOLUME 82.6 fL (83.0-97.0); MONOCYTES PERCENT AUTO 8.3 % (0-10); NEUTROPHILS ABSOLUTE AUTO 6.71 x10^3/uL (1.80-8.00); NEUTROPHILS PERCENT AUTO 69.8 % (41-71); PLATELET COUNT,PLT 121 10^3/uL (150-400); RED BLOOD CELL COUNT 3.21 x10^6/uL (4.50-6.00); WHITE BLOOD CELL COUNT,WBC 9.6 10^3/uL (4.0-11.0)
[2023-05-16 10:10] LABS: ALBUMIN 3.4 g/dL (3.4-5.0); BILIRUBIN TOTAL 0.9 mg/dL (0.0-1.0); C-REACTIVE PROTEIN 4.56 mg/dL (<=0.30); CALCIUM 9.1 mg/dL (8.4-10.1); CREATININE 1.9 mg/dL (0.7-1.3); EST CRCL DRUG DOSING (CG) 28.51 mL/min; MAGNESIUM 1.7 mg/dL (1.8-2.4); POTASSIUM,K 4.2 mEq/L (3.5-5.0); PROTEIN TOTAL,TP 6.6 g/dL (6.4-8.2)
== END 2023-05-16 11:00 | disposition home or self-care (01) ==
LOC: CC.ED 09:06
DX: J20.9 Acute bronchitis, unspecified (principal); I11.0 Hypertensive heart disease with heart failure; N18.9 Chronic kidney disease, unspecified; E78.00 Pure hypercholesterolemia, unspecified; Z87.891 Personal history of nicotine dependence; Z20.822 Contact with and (suspected) exposure to COVID-19; Z79.01 Long term (current) use of anticoagulants; Z79.899 Other long term (current) drug therapy; Z88.2 Allergy status to sulfonamides; Z88.5 Allergy status to narcotic agent; Z88.8 Allergy status to other drugs, medicaments and biological substances
CPT/HCPCS: 36415; 71046; 80053; 83735; 83880; 84484; 85025; 86140; 93005; 93010; 94640; 99284; 99285; J7620-GY; U0002

== ENCOUNTER 2023-05-29 10:06 | Inpatient (IN) | payer MEDICARE, MEDICAID ==
[2023-05-29 10:56] LABS: BASOPHILS ABSOLUTE AUTO 0.02 10^3/uL (0.00-0.50); BASOPHILS PERCENT AUTO 0.2 % (0-1); EOSINOPHILS ABSOLUTE AUTO 0.03 10^3/uL (0.00-1.50); EOSINOPHILS PERCENT AUTO 0.3 % (0-6); HEMATOCRIT 29.6 % (42.0-52.0); HEMOGLOBIN 9.6 g/dL (14.0-18.0); IMMATURE GRAN ABSOLUTE AUTO 0.05 10^3/uL (0.00-0.49); IMMATURE GRAN PERCENT AUTO 0.4 % (0.0-4.9); LYMPHOCYTES PERCENT AUTO 16.5 % (24-44); MEAN CORPUSCULAR HEMOGLOBIN 26.8 pg (27.0-32.0); MEAN CORPUSCULAR HGB CONC 32.4 g/dL (32.0-36.0); MEAN CORPUSCULAR VOLUME 82.7 fL (83.0-97.0); MONOCYTES ABSOLUTE AUTO 0.79 10^3/uL (0.00-1.50); MONOCYTES PERCENT AUTO 6.9 % (0-10); NEUTROPHILS ABSOLUTE AUTO 8.71 x10^3/uL (1.80-8.00); NEUTROPHILS PERCENT AUTO 75.7 % (41-71); PLATELET COUNT,PLT 112 10^3/uL (150-400); RED BLOOD CELL COUNT 3.58 x10^6/uL (4.50-6.00); WHITE BLOOD CELL COUNT,WBC 11.5 10^3/uL (4.0-11.0)
[2023-05-29 11:06] LABS: INR 2.77 (0.92-1.18); PROTHROMBIN TIME 27.7 SEC (9.3-11.3)
[2023-05-29 11:14] LABS: ALBUMIN 3.4 g/dL (3.4-5.0); BILIRUBIN TOTAL 1.2 mg/dL (0.0-1.0); C-REACTIVE PROTEIN 8.72 mg/dL (<=0.30); CREATININE 1.9 mg/dL (0.7-1.3); EST CRCL DRUG DOSING (CG) 27.52 mL/min; MAGNESIUM 1.8 mg/dL (1.8-2.4); POTASSIUM,K 3.6 mEq/L (3.5-5.0); PROTEIN TOTAL,TP 6.9 g/dL (6.4-8.2)
[2023-05-29 11:20] LABS: APPEARANCE,URINE CLOUDY (CLEAR); BILIRUBIN,URINE NEGATIVE (NEGATIVE); COLOR,URINE AMBER (YELLOW); GLUCOSE,URINE NEGATIVE (NEGATIVE); KETONES,URINE NEGATIVE (NEGATIVE); LEUKOCYTE ESTERASE,URINE LARGE (NEGATIVE); NITRITE,URINE POSITIVE (NEGATIVE); OCCULT BLOOD,URINE MODERATE (NEGATIVE); PROTEIN,URINE 100 mg/dL (NEGATIVE); UROBILINOGEN,URINE 0.2 EU/dL (0.2-1.0)
[2023-05-29 11:29] LABS: BACTERIA,URINE MODERATE /HPF (NOT SEEN); EPITHELIAL CELLS,URINE FEW /HPF (NOT SEEN); MUCUS,URINE FEW /HPF (NOT SEEN); RBC,URINE 40-50 /HPF (0-5); WBC,URINE >100 /HPF (0-5)
[2023-05-29 11:38] LABS: CORONAVIRUS COVID-19 NAA NEGATIVE (NEGATIVE); INFLUENZA A NAA NEGATIVE (NEGATIVE); INFLUENZA B NAA NEGATIVE (NEGATIVE); RESPIRATORY SYNCYTIAL VIR NAA NEGATIVE (NEGATIVE)
[2023-05-29] MEDS ORDERED: cefTRIAXone 2 GM Vial IVPUSH ONE (12:27)
[2023-05-29] MEDS ORDERED: Sodium Chloride 0.9% 1,000 ML IV SCH (12:30)
[2023-05-29] MEDS ORDERED: Acetaminophen 325 MG Tab PO ONE (13:07)
[2023-05-29 13:54] LABS: LACTIC ACID 2.8 mmol/L (0.4-2.0)
[2023-05-29] MEDS ORDERED: Ondansetron 4 MG Tab.DIS PO PRN (15:08)
[2023-05-29] MEDS ORDERED: Polyethylene Glycol 3350 Powder 17 GM Packet PO PRN (15:08)
[2023-05-29] MEDS ORDERED: Docusate Sodium 100 MG Cap PO PRN (15:08)
[2023-05-29] MEDS ORDERED: Ondansetron 4 MG/2 ML SDV IV PRN (15:08)
[2023-05-29] MEDS: Sodium Chloride 0.9% 1,000 ML IV SCH (15:30)
[2023-05-29] MEDS: POTASSIUM CITRATE 1080 MG PO SCH (17:21)
[2023-05-29] MEDS: Lisinopril 20 MG Tab PO SCH (19:35)
[2023-05-29] MEDS: Acetaminophen 325 MG Tab PO PRN (19:36)
[2023-05-29] MEDS: Metoprolol Tartrate 50 MG Tab PO SCH (19:37)
[2023-05-29] MEDS: Simvastatin 40 MG Tab PO SCH (19:37)
[2023-05-29] MEDS: Latanoprost 0.005% Ophth Soln 2.5 ML Bottle EYEBOTH SCH (19:38)
[2023-05-29] MEDS: Docusate Sodium 100 MG Cap PO SCH (19:38)
[2023-05-29] MEDS: cloNIDine 0.1 MG Tab PO SCH (21:30)
[2023-05-30] MEDS: Sodium Chloride 0.9% 1,000 ML IV SCH ×2 (01:31→12:02)
[2023-05-30] MEDS: Isosorbide Mononitrate 30 MG Tab.ER PO SCH (07:27)
[2023-05-30] MEDS: Tamsulosin 0.4 MG Cap.ER PO SCH (07:27)
[2023-05-30] MEDS: Docusate Sodium 100 MG Cap PO SCH ×2 (07:28→19:21)
[2023-05-30] MEDS: Furosemide 40 MG Tab PO SCH (07:28)
[2023-05-30] MEDS: Oxybutynin 5 MG Tab.ER PO SCH (07:28)
[2023-05-30] MEDS: Metoprolol Tartrate 50 MG Tab PO SCH ×2 (07:29→19:22)
[2023-05-30] MEDS: Cholecalciferol (Vitamin D3) 25 MCG Tab PO SCH (07:29)
[2023-05-30 07:55] LABS: BASOPHILS ABSOLUTE AUTO 0.02 10^3/uL (0.00-0.50); BASOPHILS PERCENT AUTO 0.4 % (0-1); EOSINOPHILS ABSOLUTE AUTO 0.07 10^3/uL (0.00-1.50); EOSINOPHILS PERCENT AUTO 1.3 % (0-6); HEMATOCRIT 23.8 % (42.0-52.0); HEMOGLOBIN 7.6 g/dL (14.0-18.0); IMMATURE GRAN ABSOLUTE AUTO 0.02 10^3/uL (0.00-0.49); IMMATURE GRAN PERCENT AUTO 0.4 % (0.0-4.9); LYMPHOCYTES ABSOLUTE AUTO 1.25 10^3/uL (0.60-5.00); LYMPHOCYTES PERCENT AUTO 23.7 % (24-44); MEAN CORPUSCULAR HEMOGLOBIN 27.1 pg (27.0-32.0); MEAN CORPUSCULAR HGB CONC 31.9 g/dL (32.0-36.0); MONOCYTES ABSOLUTE AUTO 0.57 10^3/uL (0.00-1.50); MONOCYTES PERCENT AUTO 10.8 % (0-10); NEUTROPHILS ABSOLUTE AUTO 3.35 x10^3/uL (1.80-8.00); NEUTROPHILS PERCENT AUTO 63.4 % (41-71); PLATELET COUNT,PLT 85 10^3/uL (150-400); WHITE BLOOD CELL COUNT,WBC 5.3 10^3/uL (4.0-11.0)
[2023-05-30 08:18] LABS: ALBUMIN 2.7 g/dL (3.4-5.0); BILIRUBIN TOTAL 0.7 mg/dL (0.0-1.0); C-REACTIVE PROTEIN 21.22 mg/dL (<=0.30); CALCIUM 8.5 mg/dL (8.4-10.1); CREATININE 1.7 mg/dL (0.7-1.3); EST CRCL DRUG DOSING (CG) 30.75 mL/min; PROTEIN TOTAL,TP 6.1 g/dL (6.4-8.2)
[2023-05-30] MEDS: POTASSIUM CITRATE 1080 MG PO SCH ×2 (11:53→18:15)
[2023-05-30] MEDS: cloNIDine 0.1 MG Tab PO SCH ×2 (11:54→20:51)
[2023-05-30] MEDS: Acetaminophen 325 MG Tab PO PRN (15:47)
[2023-05-30] MEDS: Lisinopril 20 MG Tab PO SCH (19:20)
[2023-05-30] MEDS: Simvastatin 40 MG Tab PO SCH (19:21)
[2023-05-30] MEDS: Latanoprost 0.005% Ophth Soln 2.5 ML Bottle EYEBOTH SCH (19:23)
[2023-05-31] MEDS: Acetaminophen 325 MG Tab PO PRN ×2 (02:38→22:20)
[2023-05-31] MEDS: Docusate Sodium 100 MG Cap PO SCH ×2 (07:35→19:13)
[2023-05-31] MEDS: Oxybutynin 5 MG Tab.ER PO SCH (07:35)
[2023-05-31] MEDS: Cholecalciferol (Vitamin D3) 25 MCG Tab PO SCH (07:35)
[2023-05-31] MEDS: Isosorbide Mononitrate 30 MG Tab.ER PO SCH (07:36)
[2023-05-31] MEDS: Furosemide 40 MG Tab PO SCH (07:39)
[2023-05-31] MEDS: Metoprolol Tartrate 50 MG Tab PO SCH ×2 (07:40→19:13)
[2023-05-31] MEDS: Tamsulosin 0.4 MG Cap.ER PO SCH (07:40)
[2023-05-31] MEDS: POTASSIUM CITRATE 1080 MG PO SCH ×2 (07:46→17:10)
[2023-05-31 08:00] LABS: ALBUMIN 2.6 g/dL (3.4-5.0); BILIRUBIN TOTAL 0.6 mg/dL (0.0-1.0); C-REACTIVE PROTEIN 14.86 mg/dL (<=0.30); CALCIUM 8.6 mg/dL (8.4-10.1); CREATININE 2.1 mg/dL (0.7-1.3); EST CRCL DRUG DOSING (CG) 24.9 mL/min; POTASSIUM,K 4.6 mEq/L (3.5-5.0); PROTEIN TOTAL,TP 5.9 g/dL (6.4-8.2)
[2023-05-31 08:04] LABS: BASOPHILS ABSOLUTE AUTO 0.02 10^3/uL (0.00-0.50); BASOPHILS PERCENT AUTO 0.4 % (0-1); EOSINOPHILS ABSOLUTE AUTO 0.07 10^3/uL (0.00-1.50); EOSINOPHILS PERCENT AUTO 1.6 % (0-6); HEMATOCRIT 21.8 % (42.0-52.0); IMMATURE GRAN ABSOLUTE AUTO 0.01 10^3/uL (0.00-0.49); IMMATURE GRAN PERCENT AUTO 0.2 % (0.0-4.9); LYMPHOCYTES ABSOLUTE AUTO 1.31 10^3/uL (0.60-5.00); LYMPHOCYTES PERCENT AUTO 29.4 % (24-44); MEAN CORPUSCULAR HEMOGLOBIN 27.4 pg (27.0-32.0); MEAN CORPUSCULAR HGB CONC 32.6 g/dL (32.0-36.0); MEAN CORPUSCULAR VOLUME 84.2 fL (83.0-97.0); MONOCYTES ABSOLUTE AUTO 0.52 10^3/uL (0.00-1.50); MONOCYTES PERCENT AUTO 11.7 % (0-10); NEUTROPHILS ABSOLUTE AUTO 2.53 x10^3/uL (1.80-8.00); NEUTROPHILS PERCENT AUTO 56.7 % (41-71); PLATELET COUNT,PLT 87 10^3/uL (150-400); RED BLOOD CELL COUNT 2.59 x10^6/uL (4.50-6.00); WHITE BLOOD CELL COUNT,WBC 4.5 10^3/uL (4.0-11.0)
[2023-05-31 08:11] LABS: HEMOGLOBIN 7.1 g/dL (14.0-18.0)
[2023-05-31] MEDS: cloNIDine 0.1 MG Tab PO SCH ×2 (08:38→20:48)
[2023-05-31] MEDS: cefTRIAXone 2 GM Vial IVPUSH SCH (10:55)
[2023-05-31] MEDS: Lisinopril 20 MG Tab PO SCH (19:13)
[2023-05-31] MEDS: Simvastatin 40 MG Tab PO SCH (19:14)
[2023-05-31] MEDS: Latanoprost 0.005% Ophth Soln 2.5 ML Bottle EYEBOTH SCH (19:15)
[2023-06-01 01:11] VITALS: PULSE 64
[2023-06-01] MEDS: Furosemide 40 MG Tab PO SCH (07:26)
[2023-06-01] MEDS: Metoprolol Tartrate 50 MG Tab PO SCH (07:27)
[2023-06-01] MEDS: Oxybutynin 5 MG Tab.ER PO SCH (07:27)
[2023-06-01] MEDS: Docusate Sodium 100 MG Cap PO SCH (07:28)
[2023-06-01] MEDS: Acetaminophen 325 MG Tab PO PRN (07:28)
[2023-06-01] MEDS: Isosorbide Mononitrate 30 MG Tab.ER PO SCH (07:29)
[2023-06-01] MEDS: Cholecalciferol (Vitamin D3) 25 MCG Tab PO SCH (07:29)
[2023-06-01] MEDS: Tamsulosin 0.4 MG Cap.ER PO SCH (07:29)
[2023-06-01] MEDS: POTASSIUM CITRATE 1080 MG PO SCH (07:30)
[2023-06-01 07:31] VITALS: BP 143/68
[2023-06-01 07:34] LABS: BASOPHILS ABSOLUTE AUTO 0.01 10^3/uL (0.00-0.50); BASOPHILS PERCENT AUTO 0.3 % (0-1); EOSINOPHILS ABSOLUTE AUTO 0.09 10^3/uL (0.00-1.50); EOSINOPHILS PERCENT AUTO 2.9 % (0-6); HEMATOCRIT 22.9 % (42.0-52.0); IMMATURE GRAN ABSOLUTE AUTO 0.01 10^3/uL (0.00-0.49); IMMATURE GRAN PERCENT AUTO 0.3 % (0.0-4.9); LYMPHOCYTES ABSOLUTE AUTO 1.01 10^3/uL (0.60-5.00); LYMPHOCYTES PERCENT AUTO 32.1 % (24-44); MEAN CORPUSCULAR HEMOGLOBIN 27.1 pg (27.0-32.0); MEAN CORPUSCULAR HGB CONC 32.3 g/dL (32.0-36.0); MEAN CORPUSCULAR VOLUME 83.9 fL (83.0-97.0); MONOCYTES ABSOLUTE AUTO 0.28 10^3/uL (0.00-1.50); MONOCYTES PERCENT AUTO 8.9 % (0-10); NEUTROPHILS ABSOLUTE AUTO 1.75 x10^3/uL (1.80-8.00); NEUTROPHILS PERCENT AUTO 55.5 % (41-71); PLATELET COUNT,PLT 91 10^3/uL (150-400); RED BLOOD CELL COUNT 2.73 x10^6/uL (4.50-6.00); WHITE BLOOD CELL COUNT,WBC 3.2 10^3/uL (4.0-11.0)
[2023-06-01 07:36] LABS: HEMOGLOBIN 7.4 g/dL (14.0-18.0)
[2023-06-01 07:43] LABS: ALBUMIN 2.8 g/dL (3.4-5.0); BILIRUBIN TOTAL 0.5 mg/dL (0.0-1.0); C-REACTIVE PROTEIN 9.9 mg/dL (<=0.30); CALCIUM 8.8 mg/dL (8.4-10.1); CREATININE 1.9 mg/dL (0.7-1.3); EST CRCL DRUG DOSING (CG) 27.52 mL/min; POTASSIUM,K 3.7 mEq/L (3.5-5.0); PROTEIN TOTAL,TP 6.3 g/dL (6.4-8.2)
[2023-06-01] MEDS: cloNIDine 0.1 MG Tab PO SCH (08:43)
[2023-06-01] MEDS: cefTRIAXone 2 GM Vial IVPUSH SCH (09:53)
== END 2023-06-01 11:50 | disposition home or self-care (01) | DRG 872 ==
LOC: CC.ED 10:06 → CC.MS 10:15 → UNDOADMIN 14:38 → CC.MS 14:56 → UNDOADMIN 14:56 → UNDODISIN 06-01 11:50
PROVIDERS: ADMIT Nurse Practitioner Family; ATTEND Nurse Practitioner
DX: A41.9 Sepsis, unspecified organism (principal); N30.01 Acute cystitis with hematuria; E87.20 Acidosis, unspecified; Z20.822 Contact with and (suspected) exposure to COVID-19; I10 Essential (primary) hypertension; D50.0 Iron deficiency anemia secondary to blood loss (chronic); I12.9 Hypertensive chronic kidney disease with stage 1 through stage 4 chronic kidney disease, or unspecified chronic kidney disease; H40.9 Unspecified glaucoma; E78.00 Pure hypercholesterolemia, unspecified; W07.XXXA Fall from chair, initial encounter; Z96.0 Presence of urogenital implants; H91.90 Unspecified hearing loss, unspecified ear; F41.9 Anxiety disorder, unspecified; N18.9 Chronic kidney disease, unspecified; Z79.899 Other long term (current) drug therapy; Z79.01 Long term (current) use of anticoagulants; Z88.2 Allergy status to sulfonamides; Z88.8 Allergy status to other drugs, medicaments and biological substances; Z85.89 Personal history of malignant neoplasm of other organs and systems; Z86.14 Personal history of Methicillin resistant Staphylococcus aureus infection; Z95.1 Presence of aortocoronary bypass graft; Z90.89 Acquired absence of other organs; Z85.53 Personal history of malignant neoplasm of renal pelvis; Z90.79 Acquired absence of other genital organ(s); Z87.19 Personal history of other diseases of the digestive system; Z11.52 Encounter for screening for COVID-19; Z98.890 Other specified postprocedural states
CPT/HCPCS: 0241U; 36415; 51702; 70450; 71045; 80053; 81001; 82272; 83605; 83735; 84484; 85025; 85610; 86140; 87040; 87086; 87088; 87186; 93005; 96374; 97161; 99285; 93010; 99223; 99232; 99238; A9270-GY; J0696; J7030

== ENCOUNTER 2023-09-03 11:16 | Inpatient (IN) | payer MEDICARE, MEDICAID ==
[2023-09-03 11:36] LABS: BASOPHILS ABSOLUTE AUTO 0.01 10^3/uL (0.00-0.50); BASOPHILS PERCENT AUTO 0.1 % (0-1); EOSINOPHILS ABSOLUTE AUTO 0.06 10^3/uL (0.00-1.50); EOSINOPHILS PERCENT AUTO 0.8 % (0-6); HEMATOCRIT 31.1 % (42.0-52.0); HEMOGLOBIN 9.9 g/dL (14.0-18.0); IMMATURE GRAN ABSOLUTE AUTO 0.03 10^3/uL (0.00-0.49); IMMATURE GRAN PERCENT AUTO 0.4 % (0.0-4.9); LYMPHOCYTES ABSOLUTE AUTO 1.54 10^3/uL (0.60-5.00); LYMPHOCYTES PERCENT AUTO 20.5 % (24-44); MEAN CORPUSCULAR HEMOGLOBIN 25.8 pg (27.0-32.0); MEAN CORPUSCULAR HGB CONC 31.8 g/dL (32.0-36.0); MONOCYTES ABSOLUTE AUTO 0.49 10^3/uL (0.00-1.50); MONOCYTES PERCENT AUTO 6.5 % (0-10); NEUTROPHILS PERCENT AUTO 71.7 % (41-71); PLATELET COUNT,PLT 148 10^3/uL (150-400); RED BLOOD CELL COUNT 3.84 x10^6/uL (4.50-6.00); WHITE BLOOD CELL COUNT,WBC 7.5 10^3/uL (4.0-11.0)
[2023-09-03 12:29] LABS: ALANINE AMINOTRANSFERASE,ALT 6 U/L (12-78); ALBUMIN 3.1 g/dL (3.4-5.0); ALKALINE PHOSPHATASE 95 U/L (46-116); ASPARTATE AMNIOTRANSFERASE,AST 13 U/L (15-37); BLOOD UREA NITROGEN,BUN 26 mg/dL (7-18); CALCIUM 9.5 mg/dL (8.4-10.1); CARBON DIOXIDE,CO2 30 mmol/L (21-32); CHLORIDE,CL 96 mEq/L (98-106); GLUCOSE RANDOM 189 mg/dL (75-99); PRO B-TYPE NATRIUR PEPT,BNPPRO 1272 pg/mL (0-1000); PROTEIN TOTAL,TP 7.8 g/dL (6.4-8.2); SODIUM,NA 137 mEq/L (136-145)
[2023-09-03 12:30] LABS: CREATININE 2.9 mg/dL (0.7-1.3); ESTIMATED GFR 21 mL/min (>=60)
[2023-09-03] MEDS ORDERED: Sodium Chloride 0.9% 10 ML Syringe FLUSH PRN (13:48)
[2023-09-03] MEDS ORDERED: Ondansetron 4 MG/2 ML SDV IV PRN (13:48)
[2023-09-03] MEDS ORDERED: Ondansetron 4 MG Tab.DIS PO PRN (13:48)
[2023-09-03] MEDS ORDERED: Docusate Sodium 100 MG Cap PO PRN (13:48)
[2023-09-03] MEDS ORDERED: Polyethylene Glycol 3350 Powder 17 GM Packet PO PRN (13:48)
[2023-09-03] MEDS ORDERED: Acetaminophen 650 MG Supp RECTAL PRN (13:48)
[2023-09-03] MEDS: Acetaminophen 325 MG Tab PO PRN (14:30)
[2023-09-03] MEDS: Sodium Chloride 0.9% 500 ML IV SCH (14:33)
[2023-09-03 14:36] LABS: INR 1.03 (0.92-1.18); PROTHROMBIN TIME 10.8 SEC (9.3-11.3); PTT,PARTIAL THROMBOPLSTIN TIME 26.9 SEC (20.0-30.0)
[2023-09-03] MEDS: Furosemide 40 MG/4 ML VIAL IVPUSH ONE (14:39)
[2023-09-03 15:04] LABS: APPEARANCE,URINE SLIGHTLY CLOUDY (CLEAR); BILIRUBIN,URINE NEGATIVE (NEGATIVE); COLOR,URINE YELLOW (YELLOW); GLUCOSE,URINE NEGATIVE (NEGATIVE); KETONES,URINE NEGATIVE (NEGATIVE); LEUKOCYTE ESTERASE,URINE LARGE (NEGATIVE); NITRITE,URINE NEGATIVE (NEGATIVE); OCCULT BLOOD,URINE MODERATE (NEGATIVE); PH,URINE 7.5 (4.5-8.0); PROTEIN,URINE 100 mg/dL (NEGATIVE); UROBILINOGEN,URINE 0.2 EU/dL (0.2-1.0)
[2023-09-03] MEDS: Sodium Chloride 0.9% 1,000 ML IV SCH (15:08)
[2023-09-03 15:15] LABS: BACTERIA,URINE FEW /HPF (NOT SEEN); EPITHELIAL CELLS,URINE OCCASIONAL /HPF (NOT SEEN); MUCUS,URINE NOT SEEN /HPF (NOT SEEN); WBC,URINE 40-50 /HPF (0-5)
[2023-09-03] MEDS: Furosemide 40 MG/4 ML VIAL ONE (15:27)
[2023-09-03] MEDS: cefTRIAXone 1 GM Vial IVPUSH SCH (16:13)
[2023-09-03] MEDS: Enoxaparin 30 MG/0.3 ML Syringe SUBCUT SCH (18:13)
[2023-09-03] MEDS: Warfarin 2 MG Tab PO ONE ×2 (20:26→20:27)
[2023-09-03] MEDS: Simvastatin 40 MG Tab PO SCH (21:17)
[2023-09-03] MEDS: cloNIDine 0.1 MG Tab PO SCH (21:17)
[2023-09-03] MEDS: Latanoprost 0.005% Ophth Soln 2.5 ML Bottle EYEBOTH SCH (22:36)
[2023-09-04] MEDS: Docusate Sodium 100 MG Cap PO SCH (07:38)
[2023-09-04] MEDS: Pantoprazole 40 MG Tab.CR PO SCH (07:39)
[2023-09-04] MEDS: Oxybutynin 5 MG Tab.ER PO SCH (07:39)
[2023-09-04] MEDS: Furosemide 40 MG/4 ML VIAL IVPUSH SCH (07:40)
[2023-09-04 07:46] LABS: BASOPHILS ABSOLUTE AUTO 0.01 10^3/uL (0.00-0.50); BASOPHILS PERCENT AUTO 0.2 % (0-1); EOSINOPHILS ABSOLUTE AUTO 0.11 10^3/uL (0.00-1.50); EOSINOPHILS PERCENT AUTO 2.1 % (0-6); HEMATOCRIT 26.9 % (42.0-52.0); HEMOGLOBIN 8.5 g/dL (14.0-18.0); IMMATURE GRAN ABSOLUTE AUTO 0.03 10^3/uL (0.00-0.49); IMMATURE GRAN PERCENT AUTO 0.6 % (0.0-4.9); LYMPHOCYTES ABSOLUTE AUTO 1.48 10^3/uL (0.60-5.00); LYMPHOCYTES PERCENT AUTO 27.9 % (24-44); MEAN CORPUSCULAR HEMOGLOBIN 26.1 pg (27.0-32.0); MEAN CORPUSCULAR HGB CONC 31.6 g/dL (32.0-36.0); MEAN CORPUSCULAR VOLUME 82.5 fL (83.0-97.0); MONOCYTES ABSOLUTE AUTO 0.44 10^3/uL (0.00-1.50); MONOCYTES PERCENT AUTO 8.3 % (0-10); NEUTROPHILS ABSOLUTE AUTO 3.24 x10^3/uL (1.80-8.00); NEUTROPHILS PERCENT AUTO 60.9 % (41-71); PLATELET COUNT,PLT 119 10^3/uL (150-400); RED BLOOD CELL COUNT 3.26 x10^6/uL (4.50-6.00); WHITE BLOOD CELL COUNT,WBC 5.3 10^3/uL (4.0-11.0)
[2023-09-04] MEDS: Isosorbide Mononitrate 30 MG Tab.ER PO SCH (07:57)
[2023-09-04] MEDS: Metoprolol Tartrate 50 MG Tab PO SCH (07:57)
[2023-09-04 08:21] LABS: INR 1.06 (0.92-1.18); PROTHROMBIN TIME 11.1 SEC (9.3-11.3)
[2023-09-04 08:23] LABS: C-REACTIVE PROTEIN 13.22 mg/dL (<=0.50); CALCIUM 8.7 mg/dL (8.4-10.1); EST CRCL DRUG DOSING (CG) 20.83 mL/min; POTASSIUM,K 3.6 mEq/L (3.5-5.0)
[2023-09-04 08:40] LABS: CREATININE 2.6 mg/dL (0.7-1.3)
[2023-09-04] MEDS: Warfarin 2 MG Tab PO SCH (11:43)
[2023-09-04] MEDS: Tamsulosin 0.4 MG Cap.ER PO SCH (20:07)
[2023-09-05 07:48] LABS: BASOPHILS ABSOLUTE AUTO 0.02 10^3/uL (0.00-0.50); BASOPHILS PERCENT AUTO 0.4 % (0-1); EOSINOPHILS ABSOLUTE AUTO 0.17 10^3/uL (0.00-1.50); EOSINOPHILS PERCENT AUTO 3.2 % (0-6); HEMATOCRIT 26.3 % (42.0-52.0); HEMOGLOBIN 8.3 g/dL (14.0-18.0); IMMATURE GRAN ABSOLUTE AUTO 0.03 10^3/uL (0.00-0.49); IMMATURE GRAN PERCENT AUTO 0.6 % (0.0-4.9); LYMPHOCYTES ABSOLUTE AUTO 1.45 10^3/uL (0.60-5.00); LYMPHOCYTES PERCENT AUTO 27.3 % (24-44); MEAN CORPUSCULAR HEMOGLOBIN 25.9 pg (27.0-32.0); MEAN CORPUSCULAR HGB CONC 31.6 g/dL (32.0-36.0); MEAN CORPUSCULAR VOLUME 82.2 fL (83.0-97.0); MONOCYTES ABSOLUTE AUTO 0.55 10^3/uL (0.00-1.50); MONOCYTES PERCENT AUTO 10.4 % (0-10); NEUTROPHILS ABSOLUTE AUTO 3.09 x10^3/uL (1.80-8.00); NEUTROPHILS PERCENT AUTO 58.1 % (41-71); PLATELET COUNT,PLT 127 10^3/uL (150-400); WHITE BLOOD CELL COUNT,WBC 5.3 10^3/uL (4.0-11.0)
[2023-09-05 09:44] LABS: C-REACTIVE PROTEIN 8.88 mg/dL (<=0.50); CALCIUM 8.3 mg/dL (8.4-10.1); CREATININE 2.4 mg/dL (0.7-1.3); EST CRCL DRUG DOSING (CG) 22.57 mL/min; POTASSIUM,K 3.7 mEq/L (3.5-5.0)
[2023-09-05] MEDS ORDERED: Hyoscyamine 0.125 MG Tab.SL SL PRN (10:34)
[2023-09-05] MEDS: Potassium Bicarbonate/Cit Ac 10 MEQ Effervescent Tab PO SCH (17:09)
[2023-09-06 08:01] LABS: BASOPHILS ABSOLUTE AUTO 0.01 10^3/uL (0.00-0.50); BASOPHILS PERCENT AUTO 0.2 % (0-1); EOSINOPHILS ABSOLUTE AUTO 0.13 10^3/uL (0.00-1.50); EOSINOPHILS PERCENT AUTO 3.1 % (0-6); HEMATOCRIT 25.1 % (42.0-52.0); HEMOGLOBIN 8.1 g/dL (14.0-18.0); IMMATURE GRAN ABSOLUTE AUTO 0.03 10^3/uL (0.00-0.49); IMMATURE GRAN PERCENT AUTO 0.7 % (0.0-4.9); LYMPHOCYTES ABSOLUTE AUTO 1.22 10^3/uL (0.60-5.00); LYMPHOCYTES PERCENT AUTO 29.3 % (24-44); MEAN CORPUSCULAR HGB CONC 32.3 g/dL (32.0-36.0); MEAN CORPUSCULAR VOLUME 80.7 fL (83.0-97.0); MONOCYTES ABSOLUTE AUTO 0.26 10^3/uL (0.00-1.50); MONOCYTES PERCENT AUTO 6.2 % (0-10); NEUTROPHILS ABSOLUTE AUTO 2.52 x10^3/uL (1.80-8.00); NEUTROPHILS PERCENT AUTO 60.5 % (41-71); PLATELET COUNT,PLT 121 10^3/uL (150-400); RED BLOOD CELL COUNT 3.11 x10^6/uL (4.50-6.00); WHITE BLOOD CELL COUNT,WBC 4.2 10^3/uL (4.0-11.0)
[2023-09-06 08:16] LABS: C-REACTIVE PROTEIN 6.16 mg/dL (<=0.50); CALCIUM 8.5 mg/dL (8.4-10.1); CREATININE 2.1 mg/dL (0.7-1.3); EST CRCL DRUG DOSING (CG) 25.79 mL/min; POTASSIUM,K 3.2 mEq/L (3.5-5.0)
[2023-09-06 08:17] LABS: INR 1.45 (0.92-1.18); PROTHROMBIN TIME 14.9 SEC (9.3-11.3)
[2023-09-06] MEDS: Potassium Bicarbonate/Cit Ac 10 MEQ Effervescent Tab PO SCH (09:18)
[2023-09-07 08:18] LABS: BASOPHILS ABSOLUTE AUTO 0.01 10^3/uL (0.00-0.50); BASOPHILS PERCENT AUTO 0.2 % (0-1); EOSINOPHILS ABSOLUTE AUTO 0.14 10^3/uL (0.00-1.50); HEMATOCRIT 26.5 % (42.0-52.0); HEMOGLOBIN 8.5 g/dL (14.0-18.0); IMMATURE GRAN ABSOLUTE AUTO 0.05 10^3/uL (0.00-0.49); IMMATURE GRAN PERCENT AUTO 1.1 % (0.0-4.9); MEAN CORPUSCULAR HEMOGLOBIN 26.1 pg (27.0-32.0); MEAN CORPUSCULAR HGB CONC 32.1 g/dL (32.0-36.0); MEAN CORPUSCULAR VOLUME 81.3 fL (83.0-97.0); MONOCYTES ABSOLUTE AUTO 0.38 10^3/uL (0.00-1.50); MONOCYTES PERCENT AUTO 8.2 % (0-10); NEUTROPHILS ABSOLUTE AUTO 2.68 x10^3/uL (1.80-8.00); NEUTROPHILS PERCENT AUTO 57.5 % (41-71); PLATELET COUNT,PLT 116 10^3/uL (150-400); RED BLOOD CELL COUNT 3.26 x10^6/uL (4.50-6.00); WHITE BLOOD CELL COUNT,WBC 4.7 10^3/uL (4.0-11.0)
[2023-09-07 08:43] LABS: INR 1.77 (0.92-1.18); PROTHROMBIN TIME 18.1 SEC (9.3-11.3)
[2023-09-07 09:04] LABS: CALCIUM 8.7 mg/dL (8.4-10.1); CREATININE 2.1 mg/dL (0.7-1.3); EST CRCL DRUG DOSING (CG) 25.79 mL/min; MAGNESIUM 1.6 mg/dL (1.8-2.4); POTASSIUM,K 3.6 mEq/L (3.5-5.0)
[2023-09-07] MEDS: Warfarin 2 MG Tab PO SCH (12:05)
[2023-09-08 07:41] LABS: BASOPHILS ABSOLUTE AUTO 0.02 10^3/uL (0.00-0.50); BASOPHILS PERCENT AUTO 0.4 % (0-1); EOSINOPHILS ABSOLUTE AUTO 0.13 10^3/uL (0.00-1.50); EOSINOPHILS PERCENT AUTO 2.7 % (0-6); HEMATOCRIT 27.2 % (42.0-52.0); HEMOGLOBIN 8.6 g/dL (14.0-18.0); IMMATURE GRAN ABSOLUTE AUTO 0.05 10^3/uL (0.00-0.49); IMMATURE GRAN PERCENT AUTO 1.1 % (0.0-4.9); LYMPHOCYTES PERCENT AUTO 27.5 % (24-44); MEAN CORPUSCULAR HEMOGLOBIN 25.7 pg (27.0-32.0); MEAN CORPUSCULAR HGB CONC 31.6 g/dL (32.0-36.0); MEAN CORPUSCULAR VOLUME 81.4 fL (83.0-97.0); MONOCYTES ABSOLUTE AUTO 0.36 10^3/uL (0.00-1.50); MONOCYTES PERCENT AUTO 7.6 % (0-10); NEUTROPHILS ABSOLUTE AUTO 2.87 x10^3/uL (1.80-8.00); NEUTROPHILS PERCENT AUTO 60.7 % (41-71); PLATELET COUNT,PLT 116 10^3/uL (150-400); RED BLOOD CELL COUNT 3.34 x10^6/uL (4.50-6.00); WHITE BLOOD CELL COUNT,WBC 4.7 10^3/uL (4.0-11.0)
[2023-09-08 07:43] VITALS: BP 130/57; PULSE 63
[2023-09-08 08:01] LABS: INR 2.33 (0.92-1.18); PROTHROMBIN TIME 23.5 SEC (9.3-11.3)
[2023-09-08 08:35] LABS: CALCIUM 8.8 mg/dL (8.4-10.1); EST CRCL DRUG DOSING (CG) 27.08 mL/min; MAGNESIUM 1.7 mg/dL (1.8-2.4); POTASSIUM,K 3.7 mEq/L (3.5-5.0)
[2023-09-08] MEDS: cefTRIAXone 1 GM Vial IVPUSH SCH (11:36)
== END 2023-09-08 13:20 | disposition home or self-care (01) | DRG 683 ==
LOC: CC.FCMC 11:16 → CC.MS 11:16 → UNDOADMIN 12:48 → CC.MS 12:48
PROVIDERS: ADMIT Nurse Practitioner Family; ATTEND Nurse Practitioner Family
DX: N17.9 Acute kidney failure, unspecified (principal); I13.0 Hypertensive heart and chronic kidney disease with heart failure and stage 1 through stage 4 chronic kidney disease, or unspecified chronic kidney disease; N30.01 Acute cystitis with hematuria; I50.9 Heart failure, unspecified; N18.4 Chronic kidney disease, stage 4 (severe); I48.91 Unspecified atrial fibrillation; D63.1 Anemia in chronic kidney disease; H91.90 Unspecified hearing loss, unspecified ear; H40.9 Unspecified glaucoma; E78.00 Pure hypercholesterolemia, unspecified; F41.9 Anxiety disorder, unspecified; Z98.890 Other specified postprocedural states; Z79.01 Long term (current) use of anticoagulants; Z79.899 Other long term (current) drug therapy; Z88.8 Allergy status to other drugs, medicaments and biological substances; Z88.2 Allergy status to sulfonamides
CPT/HCPCS: 36415; 71046; 80048; 80053; 81001; 83735; 83880; 84484; 85025; 85379; 85610; 85730; 86140; 87086; 93005; 93010; 97110-GP; 97162-GP; 99223; 99232; 99233; 99238; A9270-GY; J0696; J1650; J1940; J7030; J7040

== ENCOUNTER 2023-11-12 12:38 | Inpatient (IN) | payer MEDICARE, MEDICAID ==
[2023-11-12] MEDS: Sodium Chloride 0.9% 1,000 ML IV ONE ×3 (13:17→17:17)
[2023-11-12] MEDS: Dexamethasone 10 MG/ML SDV IVPUSH ONE (13:21)
[2023-11-12] MEDS: Acetaminophen 500 MG Tab PO ONE (13:21)
[2023-11-12] MEDS: Albuterol/Ipratropium 3.0-0.5 MG/3 ML Neb Soln NEB ONE (13:22)
[2023-11-12 13:29] LABS: BASOPHILS ABSOLUTE AUTO 0.02 10^3/uL (0.00-0.50); BASOPHILS PERCENT AUTO 0.2 % (0-1); HEMATOCRIT 32.3 % (42.0-52.0); HEMOGLOBIN 10.2 g/dL (14.0-18.0); IMMATURE GRAN ABSOLUTE AUTO 0.02 10^3/uL (0.00-0.49); IMMATURE GRAN PERCENT AUTO 0.2 % (0.0-4.9); LYMPHOCYTES ABSOLUTE AUTO 1.82 10^3/uL (0.60-5.00); LYMPHOCYTES PERCENT AUTO 19.1 % (24-44); MEAN CORPUSCULAR HEMOGLOBIN 26.9 pg (27.0-32.0); MEAN CORPUSCULAR HGB CONC 31.6 g/dL (32.0-36.0); MEAN CORPUSCULAR VOLUME 85.2 fL (83.0-97.0); MONOCYTES ABSOLUTE AUTO 0.84 10^3/uL (0.00-1.50); MONOCYTES PERCENT AUTO 8.8 % (0-10); NEUTROPHILS ABSOLUTE AUTO 6.75 x10^3/uL (1.80-8.00); NEUTROPHILS PERCENT AUTO 70.7 % (41-71); PLATELET COUNT,PLT 128 10^3/uL (150-400); RED BLOOD CELL COUNT 3.79 x10^6/uL (4.50-6.00); WHITE BLOOD CELL COUNT,WBC 9.6 10^3/uL (4.0-11.0)
[2023-11-12 13:47] LABS: ALBUMIN 3.7 g/dL (3.4-5.0); BILIRUBIN TOTAL 0.8 mg/dL (0.0-1.0); CALCIUM 9.3 mg/dL (8.4-10.1); EST CRCL DRUG DOSING (CG) 26.62 mL/min; LACTIC ACID 4.2 mmol/L (0.4-2.0); POTASSIUM,K 4.4 mEq/L (3.5-5.0); PROTEIN TOTAL,TP 7.7 g/dL (6.4-8.2)
[2023-11-12 14:06] LABS: CORONAVIRUS COVID-19 NAA NEGATIVE (NEGATIVE); INFLUENZA A NAA NEGATIVE (NEGATIVE); INFLUENZA B NAA NEGATIVE (NEGATIVE); RESPIRATORY SYNCYTIAL VIR NAA NEGATIVE (NEGATIVE)
[2023-11-12 14:16] LABS: APPEARANCE,URINE CLOUDY (CLEAR); BILIRUBIN,URINE NEGATIVE (NEGATIVE); COLOR,URINE YELLOW (YELLOW); GLUCOSE,URINE NEGATIVE (NEGATIVE); KETONES,URINE NEGATIVE (NEGATIVE); LEUKOCYTE ESTERASE,URINE SMALL (NEGATIVE); NITRITE,URINE NEGATIVE (NEGATIVE); OCCULT BLOOD,URINE MODERATE (NEGATIVE); PROTEIN,URINE NEGATIVE (NEGATIVE); UROBILINOGEN,URINE 0.2 EU/dL (0.2-1.0)
[2023-11-12 14:31] LABS: BACTERIA,URINE FEW /HPF (NOT SEEN); RBC,URINE >100 /HPF (0-5); SQUAMOUS EPITHELIAL CELLS,UR NOT SEEN /HPF (NOT SEEN); WBC,URINE 20-30 /HPF (0-5)
[2023-11-12] MEDS: Piperacillin/Tazobactam 4.5 GM in Sodium Chloride 0.9% 100 ML IV ONE (15:44)
[2023-11-12] MEDS ORDERED: Albuterol/Ipratropium 3.0-0.5 MG/3 ML Neb Soln NEB PRN (17:22)
[2023-11-12] MEDS ORDERED: Ondansetron 4 MG/2 ML SDV IV PRN (17:22)
[2023-11-12] MEDS ORDERED: Temazepam 15 MG Cap PO PRN (17:22)
[2023-11-12 17:54] LABS: INR 2.75 (0.92-1.18); PROTHROMBIN TIME 27.5 SEC (9.3-11.3)
[2023-11-12] MEDS: Albuterol/Ipratropium 3.0-0.5 MG/3 ML Neb Soln NEB SCH (18:35)
[2023-11-12] MEDS: Docusate Sodium 100 MG Cap PO SCH (19:36)
[2023-11-12] MEDS: guaiFENesin 200 MG Tab PO SCH (19:37)
[2023-11-12] MEDS: Metoprolol Tartrate 50 MG Tab PO SCH (19:37)
[2023-11-12] MEDS: Simvastatin 40 MG Tab PO SCH (19:37)
[2023-11-12] MEDS: Latanoprost 0.005% Ophth Soln 2.5 ML Bottle EYEBOTH SCH (19:38)
[2023-11-12] MEDS: Piperacillin/Tazobactam 4.5 GM in Sodium Chloride 0.9% 100 ML IV SCH (19:50)
[2023-11-12] MEDS: cloNIDine 0.1 MG Tab PO SCH (20:01)
[2023-11-13] MEDS: Acetaminophen 325 MG Tab PO PRN (04:19)
[2023-11-13] MEDS: Pantoprazole 40 MG Tab.CR PO SCH (06:01)
[2023-11-13] MEDS: Isosorbide Mononitrate 30 MG Tab.ER PO SCH (07:44)
[2023-11-13] MEDS: Dexamethasone 10 MG/ML SDV IVPUSH SCH (07:44)
[2023-11-13] MEDS: Oxybutynin 5 MG Tab.ER PO SCH (07:44)
[2023-11-13] MEDS: Furosemide 20 MG Tab PO SCH (07:44)
[2023-11-13 07:51] LABS: BASOPHILS ABSOLUTE AUTO 0.01 10^3/uL (0.00-0.50); BASOPHILS PERCENT AUTO 0.1 % (0-1); HEMATOCRIT 28.3 % (42.0-52.0); HEMOGLOBIN 9.1 g/dL (14.0-18.0); IMMATURE GRAN ABSOLUTE AUTO 0.04 10^3/uL (0.00-0.49); IMMATURE GRAN PERCENT AUTO 0.6 % (0.0-4.9); LYMPHOCYTES ABSOLUTE AUTO 1.38 10^3/uL (0.60-5.00); LYMPHOCYTES PERCENT AUTO 20.4 % (24-44); MEAN CORPUSCULAR HEMOGLOBIN 27.1 pg (27.0-32.0); MEAN CORPUSCULAR HGB CONC 32.2 g/dL (32.0-36.0); MEAN CORPUSCULAR VOLUME 84.2 fL (83.0-97.0); MONOCYTES ABSOLUTE AUTO 0.43 10^3/uL (0.00-1.50); MONOCYTES PERCENT AUTO 6.4 % (0-10); NEUTROPHILS ABSOLUTE AUTO 4.91 x10^3/uL (1.80-8.00); NEUTROPHILS PERCENT AUTO 72.5 % (41-71); PLATELET COUNT,PLT 111 10^3/uL (150-400); RED BLOOD CELL COUNT 3.36 x10^6/uL (4.50-6.00); WHITE BLOOD CELL COUNT,WBC 6.8 10^3/uL (4.0-11.0)
[2023-11-13 08:05] LABS: CALCIUM 8.6 mg/dL (8.4-10.1); CREATININE 1.9 mg/dL (0.7-1.3); EST CRCL DRUG DOSING (CG) 28.02 mL/min; POTASSIUM,K 4.2 mEq/L (3.5-5.0)
[2023-11-13 10:03] LABS: BASE EXCESS ARTERIAL -6.5 (-2.0-3.0); BICARBONATE,ARTERIAL 17.9 mm/L (22.0-26.0); O2 DELIVERY DEVICE ROOM AIR; O2 SATURATION ARTERIAL 98 % (95-98); PCO2 ARTERIAL 27 mm/Hg0 (35-45); PH,ARTERIAL 7.43 (7.35-7.45); PO2 ARTERIAL 101 mm/Hg (80-100)
[2023-11-13] MEDS: Albuterol 0.083% 2.5 MG/3 ML Neb Soln NEB PRN (10:22)
[2023-11-13] MEDS: Warfarin 2 MG Tab PO SCH (11:54)
[2023-11-13] MEDS: POTASSIUM CITRATE 10 MEQ PO SCH (11:55)
[2023-11-13] MEDS: Tamsulosin 0.4 MG Cap.ER PO SCH (11:55)
[2023-11-13] MEDS: VANCOmycin 1 GM/200 ML 1 GM in Premix Bag 1 BAG IV SCH (16:25)
[2023-11-13] MEDS: Lactated Ringers 1,000 ML IV ONE ×2 (18:17→19:56)
[2023-11-13 18:41] LABS: HEMATOCRIT 28.9 % (42.0-52.0); HEMOGLOBIN 9.4 g/dL (14.0-18.0); IMMATURE GRAN ABSOLUTE AUTO 0.06 10^3/uL (0.00-0.49); IMMATURE GRAN PERCENT AUTO 0.7 % (0.0-4.9); LYMPHOCYTES ABSOLUTE AUTO 1.59 10^3/uL (0.60-5.00); LYMPHOCYTES PERCENT AUTO 19.5 % (24-44); MEAN CORPUSCULAR HEMOGLOBIN 27.3 pg (27.0-32.0); MEAN CORPUSCULAR HGB CONC 32.5 g/dL (32.0-36.0); MONOCYTES PERCENT AUTO 3.7 % (0-10); NEUTROPHILS ABSOLUTE AUTO 6.21 x10^3/uL (1.80-8.00); NEUTROPHILS PERCENT AUTO 76.1 % (41-71); PLATELET COUNT,PLT 135 10^3/uL (150-400); RED BLOOD CELL COUNT 3.44 x10^6/uL (4.50-6.00); WHITE BLOOD CELL COUNT,WBC 8.2 10^3/uL (4.0-11.0)
[2023-11-13 18:59] LABS: BICARBONATE,ARTERIAL 17.1 mm/L (22.0-26.0); O2 DELIVERY DEVICE ROOM AIR; O2 SATURATION ARTERIAL 99 % (95-98); PCO2 ARTERIAL 22 mm/Hg0 (35-45); PH,ARTERIAL 7.51 (7.35-7.45); PO2 ARTERIAL 121 mm/Hg (80-100)
[2023-11-13 19:00] LABS: BASE EXCESS ARTERIAL -5.9 (-2.0-3.0)
[2023-11-13 19:10] LABS: ALBUMIN 3.4 g/dL (3.4-5.0); BILIRUBIN TOTAL 0.6 mg/dL (0.0-1.0); CALCIUM 8.7 mg/dL (8.4-10.1); CREATININE 2.2 mg/dL (0.7-1.3); EST CRCL DRUG DOSING (CG) 24.2 mL/min; POTASSIUM,K 4.2 mEq/L (3.5-5.0); PROTEIN TOTAL,TP 7.3 g/dL (6.4-8.2)
[2023-11-13] MEDS: Iopamidol 755 Mg/ML 100 ML Bottle IVPUSH ONE (19:14)
[2023-11-13] MEDS ORDERED: Glucagon,Human Recombinant 1 MG Vial IM PRN (19:53)
[2023-11-13] MEDS ORDERED: 50% Dextrose in Water 50 ML Syringe IVPUSH PRN (19:53)
[2023-11-13] MEDS: Insulin Regular, Human 100 Units/ML 3 ML Vial IV ONE (20:12)
[2023-11-13 20:15] LABS: INR 2.87 (0.92-1.18); PROTHROMBIN TIME 28.7 SEC (9.3-11.3); PTT,PARTIAL THROMBOPLSTIN TIME 39.4 SEC (20.0-30.0)
[2023-11-13] MEDS: Insulin Glarg,Human.Rec.Analog 100 Unit/ML 10 ML Vial SUBCUT ONE (20:15)
[2023-11-13] MEDS: Heparin Sodium/0.45% NaCl 500 ML IV SCH (20:23)
[2023-11-13] MEDS: Heparin Sodium 5,000 Units/ML Vial IVPUSH ONE (20:26)
[2023-11-13] MEDS: Metoprolol Tartrate 5 MG/5 ML SDV IVPUSH ONE (20:29)
[2023-11-13] MEDS: Thiamine 250 MG in Sodium Chloride 0.9% 100 ML IV SCH (20:46)
[2023-11-13] MEDS ORDERED: Diltiazem 100 MG in Sodium Chloride 0.9% 100 ML IV SCH (21:15)
[2023-11-13] MEDS: Diltiazem 25 MG/5 ML SDV IVPUSH ONE (22:00)
[2023-11-13 22:59] VITALS: BP 156/96; PULSE 121
[2023-11-14] MEDS ORDERED: Thiamine 250 MG in Sodium Chloride 0.9% 100 ML IV SCH (08:00)
== END 2023-11-13 22:15 | DRG 871 ==
LOC: CC.ED 12:38 → UNDOADMIN 17:12 → CC.MS 17:12
PROVIDERS: ADMIT Physician Assistant Medical; ATTEND Physician Assistant Medical
PROC: 4A133R1 Monitoring of Arterial Saturation, Peripheral, Percutaneous Approach (ICD-10-PCS; principal; 2023-11-12)
PROC: 3E03329 Introduction of Other Anti-infective into Peripheral Vein, Percutaneous Approach (ICD-10-PCS; 2023-11-12)
PROC: 0T9B70Z Drainage of Bladder with Drainage Device, Via Natural or Artificial Opening (ICD-10-PCS; 2023-11-13)
DX: A41.9 Sepsis, unspecified organism (principal); I21.4 Non-ST elevation (NSTEMI) myocardial infarction; J18.9 Pneumonia, unspecified organism; N30.01 Acute cystitis with hematuria; N17.9 Acute kidney failure, unspecified; E87.21 Acute metabolic acidosis; R65.20 Severe sepsis without septic shock; H91.90 Unspecified hearing loss, unspecified ear; H54.7 Unspecified visual loss; E78.00 Pure hypercholesterolemia, unspecified; I10 Essential (primary) hypertension; F41.9 Anxiety disorder, unspecified; R32 Unspecified urinary incontinence; Z88.1 Allergy status to other antibiotic agents; Z95.1 Presence of aortocoronary bypass graft; Z79.01 Long term (current) use of anticoagulants; Z79.899 Other long term (current) drug therapy; Z88.8 Allergy status to other drugs, medicaments and biological substances; Z88.5 Allergy status to narcotic agent; Z88.2 Allergy status to sulfonamides; Z98.890 Other specified postprocedural states; I25.2 Old myocardial infarction
CPT/HCPCS: 0241U; 36415; 36600; 71045; 71250; 74177; 80048; 80053; 80202; 81001; 82550; 82803; 83605; 83690; 83735; 83880; 84145; 84484; 85025; 85610; 85730; 87040; 87086; 93005; 93010; 94640; 96361; 96365; 96367; 96375; 97162-GP; 99223; 99239; 99285-25; A9270-GY; J1100; J1644; J1815-GY; J2543; J3370; J3411; J3490; J7030; J7050; J7120; J7613-GY; J7620-GY; Q9967

== ENCOUNTER 2023-11-28 13:09 | Emergency (ER) | payer MEDICARE, MEDICAID ==
[2023-11-28 13:13] VITALS: BP 106/58; PULSE 78
[2023-11-28 13:43] LABS: BASOPHILS ABSOLUTE AUTO 0.03 10^3/uL (0.00-0.50); BASOPHILS PERCENT AUTO 0.7 % (0-1); EOSINOPHILS ABSOLUTE AUTO 0.06 10^3/uL (0.00-1.50); EOSINOPHILS PERCENT AUTO 1.4 % (0-6); HEMATOCRIT 28.4 % (42.0-52.0); HEMOGLOBIN 8.8 g/dL (14.0-18.0); IMMATURE GRAN ABSOLUTE AUTO 0.03 10^3/uL (0.00-0.49); IMMATURE GRAN PERCENT AUTO 0.7 % (0.0-4.9); LYMPHOCYTES ABSOLUTE AUTO 1.02 10^3/uL (0.60-5.00); MEAN CORPUSCULAR HEMOGLOBIN 26.5 pg (27.0-32.0); MEAN CORPUSCULAR VOLUME 85.5 fL (83.0-97.0); MONOCYTES ABSOLUTE AUTO 0.35 10^3/uL (0.00-1.50); MONOCYTES PERCENT AUTO 7.9 % (0-10); NEUTROPHILS ABSOLUTE AUTO 2.95 x10^3/uL (1.80-8.00); NEUTROPHILS PERCENT AUTO 66.3 % (41-71); PLATELET COUNT,PLT 94 10^3/uL (150-400); RED BLOOD CELL COUNT 3.32 x10^6/uL (4.50-6.00); WHITE BLOOD CELL COUNT,WBC 4.4 10^3/uL (4.0-11.0)
[2023-11-28 14:01] LABS: ALBUMIN 3.4 g/dL (3.4-5.0); BILIRUBIN TOTAL 0.7 mg/dL (0.0-1.0); C-REACTIVE PROTEIN 0.69 mg/dL (<=0.50); CALCIUM 8.5 mg/dL (8.4-10.1); CREATININE 2.3 mg/dL (0.7-1.3); EST CRCL DRUG DOSING (CG) 23.15 mL/min; PROTEIN TOTAL,TP 6.8 g/dL (6.4-8.2)
[2023-11-28 14:13] LABS: APPEARANCE,URINE SLIGHTLY CLOUDY (CLEAR); BILIRUBIN,URINE NEGATIVE (NEGATIVE); COLOR,URINE DARK YELLOW (YELLOW); GLUCOSE,URINE NEGATIVE (NEGATIVE); KETONES,URINE NEGATIVE (NEGATIVE); LEUKOCYTE ESTERASE,URINE SMALL (NEGATIVE); NITRITE,URINE NEGATIVE (NEGATIVE); OCCULT BLOOD,URINE LARGE (NEGATIVE); PH,URINE 8.5 (4.5-8.0); PROTEIN,URINE 100 mg/dL (NEGATIVE); UROBILINOGEN,URINE 0.2 EU/dL (0.2-1.0)
[2023-11-28 14:28] LABS: BACTERIA,URINE OCCASIONAL /HPF (NOT SEEN); EPITHELIAL CELLS,URINE NOT SEEN /HPF (NOT SEEN); MUCUS,URINE FEW /HPF (NOT SEEN); RBC,URINE 40-50 /HPF (0-5)
== END 2023-11-28 14:40 | disposition home or self-care (01) ==
LOC: CC.ED 13:09
DX: R53.1 Weakness (principal); I10 Essential (primary) hypertension; E78.00 Pure hypercholesterolemia, unspecified; Z88.8 Allergy status to other drugs, medicaments and biological substances; Z88.5 Allergy status to narcotic agent; Z88.2 Allergy status to sulfonamides; Z79.01 Long term (current) use of anticoagulants; Z79.899 Other long term (current) drug therapy; Z95.1 Presence of aortocoronary bypass graft
CPT/HCPCS: 36415; 71046; 80053; 81001; 83880; 84484; 85025; 85379; 86140; 87086; 87804; 93005; 99285; U0002

== ENCOUNTER 2023-12-05 10:34 | Observation (INO) | payer MEDICARE, MEDICAID ==
[2023-12-05 10:48] LABS: BASOPHILS ABSOLUTE AUTO 0.03 10^3/uL (0.00-0.50); BASOPHILS PERCENT AUTO 0.6 % (0-1); EOSINOPHILS ABSOLUTE AUTO 0.08 10^3/uL (0.00-1.50); EOSINOPHILS PERCENT AUTO 1.6 % (0-6); HEMOGLOBIN 7.7 g/dL (14.0-18.0); IMMATURE GRAN ABSOLUTE AUTO 0.03 10^3/uL (0.00-0.49); IMMATURE GRAN PERCENT AUTO 0.6 % (0.0-4.9); LYMPHOCYTES ABSOLUTE AUTO 1.19 10^3/uL (0.60-5.00); LYMPHOCYTES PERCENT AUTO 24.2 % (24-44); MEAN CORPUSCULAR HEMOGLOBIN 26.8 pg (27.0-32.0); MEAN CORPUSCULAR HGB CONC 30.8 g/dL (32.0-36.0); MEAN CORPUSCULAR VOLUME 87.1 fL (83.0-97.0); MONOCYTES ABSOLUTE AUTO 0.34 10^3/uL (0.00-1.50); MONOCYTES PERCENT AUTO 6.9 % (0-10); NEUTROPHILS ABSOLUTE AUTO 3.24 x10^3/uL (1.80-8.00); NEUTROPHILS PERCENT AUTO 66.1 % (41-71); PLATELET COUNT,PLT 106 10^3/uL (150-400); RED BLOOD CELL COUNT 2.87 x10^6/uL (4.50-6.00); WHITE BLOOD CELL COUNT,WBC 4.9 10^3/uL (4.0-11.0)
[2023-12-05 11:08] LABS: ALANINE AMINOTRANSFERASE,ALT 17 U/L (12-78); ALBUMIN 3.1 g/dL (3.4-5.0); ALKALINE PHOSPHATASE 80 U/L (46-116); ASPARTATE AMNIOTRANSFERASE,AST 16 U/L (15-37); BILIRUBIN TOTAL 0.5 mg/dL (0.0-1.0); BLOOD UREA NITROGEN,BUN 33 mg/dL (7-18); C-REACTIVE PROTEIN 0.57 mg/dL (<=0.50); CALCIUM 8.5 mg/dL (8.4-10.1); CARBON DIOXIDE,CO2 27 mmol/L (21-32); CHLORIDE,CL 101 mEq/L (98-106); CREATININE 2.2 mg/dL (0.7-1.3); GLUCOSE RANDOM 224 mg/dL (75-99); POTASSIUM,K 4.7 mEq/L (3.5-5.0); PRO B-TYPE NATRIUR PEPT,BNPPRO 468 pg/mL (0-1000); PROTEIN TOTAL,TP 6.2 g/dL (6.4-8.2); SODIUM,NA 140 mEq/L (136-145)
[2023-12-05 11:09] LABS: ESTIMATED GFR 29 mL/min (>=60)
[2023-12-05 12:13] LABS: PROTHROMBIN TIME 58.4 SEC (9.3-11.3)
[2023-12-05 12:15] LABS: INR 6.06 (0.92-1.18)
[2023-12-05] MEDS: LORazepam 0.5 MG Tab PO ONE (12:39)
[2023-12-05] MEDS ORDERED: Ondansetron 4 MG/2 ML SDV IV PRN (13:43)
[2023-12-05] MEDS ORDERED: Ondansetron 4 MG Tab.DIS PO PRN (13:43)
[2023-12-05] MEDS ORDERED: Polyethylene Glycol 3350 Powder 17 GM Packet PO PRN (13:43)
[2023-12-05] MEDS ORDERED: Docusate Sodium 100 MG Cap PO PRN (13:43)
[2023-12-05] MEDS ORDERED: Take Home: Acetaminophen/HYDROcodone 325-5 MG, 2 Tab Pack PO PRN (13:47)
[2023-12-05] MEDS ORDERED: Sodium Chloride 0.9% 250 ML IV SCH (15:00)
[2023-12-05] MEDS: Albuterol/Ipratropium 3.0-0.5 MG/3 ML Neb Soln INH SCH (16:05)
[2023-12-05 17:03] LABS: APPEARANCE,URINE CLEAR (CLEAR); BILIRUBIN,URINE NEGATIVE (NEGATIVE); COLOR,URINE YELLOW (YELLOW); GLUCOSE,URINE NEGATIVE (NEGATIVE); KETONES,URINE NEGATIVE (NEGATIVE); NITRITE,URINE NEGATIVE (NEGATIVE); OCCULT BLOOD,URINE LARGE (NEGATIVE); PH,URINE 7.5 (4.5-8.0); PROTEIN,URINE TRACE mg/dL (NEGATIVE); UROBILINOGEN,URINE 0.2 EU/dL (0.2-1.0)
[2023-12-05 17:05] LABS: LEUKOCYTE ESTERASE,URINE SMALL (NEGATIVE)
[2023-12-05] MEDS: Potassium Bicarbonate/Cit Ac 10 MEQ Effervescent Tab PO SCH (17:05)
[2023-12-05 17:06] LABS: BACTERIA,URINE NOT SEEN /HPF (NOT SEEN); EPITHELIAL CELLS,URINE NOT SEEN /HPF (NOT SEEN); MUCUS,URINE OCCASIONAL /HPF (NOT SEEN); WBC,URINE 0-5 /HPF (0-5)
[2023-12-05 18:05] LABS: HEMATOCRIT 26.5 % (42.0-52.0); HEMOGLOBIN 8.3 g/dL (14.0-18.0)
[2023-12-05] MEDS: Simvastatin 40 MG Tab PO SCH (19:51)
[2023-12-05] MEDS: Metoprolol Tartrate 50 MG Tab PO SCH (19:51)
[2023-12-05] MEDS: cloNIDine 0.1 MG Tab PO SCH (19:51)
[2023-12-05] MEDS: Latanoprost 0.005% Ophth Soln 2.5 ML Bottle EYEBOTH SCH (19:51)
[2023-12-05] MEDS: Mupirocin Oint 22 GM Tube TOP SCH (19:52)
[2023-12-05] MEDS ORDERED: Docusate Sodium 100 MG Cap PO SCH (20:00)
[2023-12-05] MEDS: Acetaminophen 325 MG Tab PO PRN (22:43)
[2023-12-06] MEDS: Pantoprazole 40 MG Tab.CR PO SCH (06:26)
[2023-12-06 07:43] LABS: CALCIUM 8.2 mg/dL (8.4-10.1); CREATININE 1.9 mg/dL (0.7-1.3); EST CRCL DRUG DOSING (CG) 28.02 mL/min; MAGNESIUM 2.1 mg/dL (1.8-2.4)
[2023-12-06 07:51] LABS: BASOPHILS ABSOLUTE AUTO 0.03 10^3/uL (0.00-0.50); BASOPHILS PERCENT AUTO 0.9 % (0-1); EOSINOPHILS PERCENT AUTO 2.9 % (0-6); HEMATOCRIT 25.5 % (42.0-52.0); HEMOGLOBIN 7.9 g/dL (14.0-18.0); IMMATURE GRAN ABSOLUTE AUTO 0.01 10^3/uL (0.00-0.49); IMMATURE GRAN PERCENT AUTO 0.3 % (0.0-4.9); LYMPHOCYTES ABSOLUTE AUTO 0.93 10^3/uL (0.60-5.00); LYMPHOCYTES PERCENT AUTO 27.1 % (24-44); MEAN CORPUSCULAR HEMOGLOBIN 27.2 pg (27.0-32.0); MEAN CORPUSCULAR VOLUME 87.9 fL (83.0-97.0); MONOCYTES PERCENT AUTO 8.7 % (0-10); NEUTROPHILS ABSOLUTE AUTO 2.06 x10^3/uL (1.80-8.00); NEUTROPHILS PERCENT AUTO 60.1 % (41-71); PLATELET COUNT,PLT 101 10^3/uL (150-400); PROTHROMBIN TIME 57.4 SEC (9.3-11.3); WHITE BLOOD CELL COUNT,WBC 3.4 10^3/uL (4.0-11.0)
[2023-12-06] MEDS: Tamsulosin 0.4 MG Cap.ER PO SCH (07:56)
[2023-12-06] MEDS: Isosorbide Mononitrate 30 MG Tab.ER PO SCH (07:56)
[2023-12-06] MEDS: Cholecalciferol (Vitamin D3) 25 MCG Tab PO SCH (07:57)
[2023-12-06] MEDS: Furosemide 40 MG Tab PO SCH (07:57)
[2023-12-06] MEDS: Oxybutynin 5 MG Tab.ER PO SCH (07:57)
[2023-12-06 08:05] LABS: INR 5.96 (0.92-1.18)
[2023-12-06 15:42] VITALS: BP 122/64; PULSE 72
== END 2023-12-06 11:55 | disposition home or self-care (01) ==
LOC: CC.FCMC 10:34 → UNDOADMOB 11:32 → CC.MS 11:32
PROVIDERS: ADMIT Nurse Practitioner; ATTEND Nurse Practitioner
DX: N18.9 Chronic kidney disease, unspecified (principal); I12.9 Hypertensive chronic kidney disease with stage 1 through stage 4 chronic kidney disease, or unspecified chronic kidney disease; C61 Malignant neoplasm of prostate; E87.20 Acidosis, unspecified; D50.0 Iron deficiency anemia secondary to blood loss (chronic); E78.00 Pure hypercholesterolemia, unspecified; F41.9 Anxiety disorder, unspecified; R79.1 Abnormal coagulation profile; R53.1 Weakness; R06.02 Shortness of breath; Z79.899 Other long term (current) drug therapy; Z79.01 Long term (current) use of anticoagulants; Z88.5 Allergy status to narcotic agent; Z88.2 Allergy status to sulfonamides; Z88.8 Allergy status to other drugs, medicaments and biological substances
CPT/HCPCS: 36415; 36430; 71046; 80048; 80053; 81001; 83605; 83735; 83880; 85014; 85018; 85025; 85610; 86140; 86850; 86900; 86901; 86920; 86922; 93005; 94640; A9270-GY; G0378; J7620-GY; P9016

== ENCOUNTER 2023-12-09 11:21 | Inpatient (IN) | payer MEDICARE, MEDICAID ==
[2023-12-09 12:27] LABS: BASOPHILS ABSOLUTE AUTO 0.02 10^3/uL (0.00-0.50); BASOPHILS PERCENT AUTO 0.5 % (0-1); EOSINOPHILS PERCENT AUTO 2.6 % (0-6); HEMATOCRIT 27.3 % (42.0-52.0); HEMOGLOBIN 8.5 g/dL (14.0-18.0); IMMATURE GRAN ABSOLUTE AUTO 0.02 10^3/uL (0.00-0.49); IMMATURE GRAN PERCENT AUTO 0.5 % (0.0-4.9); LYMPHOCYTES ABSOLUTE AUTO 1.03 10^3/uL (0.60-5.00); LYMPHOCYTES PERCENT AUTO 26.5 % (24-44); MEAN CORPUSCULAR HGB CONC 31.1 g/dL (32.0-36.0); MEAN CORPUSCULAR VOLUME 86.7 fL (83.0-97.0); MONOCYTES ABSOLUTE AUTO 0.33 10^3/uL (0.00-1.50); MONOCYTES PERCENT AUTO 8.5 % (0-10); NEUTROPHILS ABSOLUTE AUTO 2.38 x10^3/uL (1.80-8.00); NEUTROPHILS PERCENT AUTO 61.4 % (41-71); PLATELET COUNT,PLT 91 10^3/uL (150-400); RED BLOOD CELL COUNT 3.15 x10^6/uL (4.50-6.00); WHITE BLOOD CELL COUNT,WBC 3.9 10^3/uL (4.0-11.0)
[2023-12-09 12:36] LABS: INR 1.33 (0.92-1.18); PROTHROMBIN TIME 13.8 SEC (9.3-11.3)
[2023-12-09 12:48] LABS: BLOOD UREA NITROGEN,BUN 24 mg/dL (7-18); CALCIUM 8.9 mg/dL (8.4-10.1); CARBON DIOXIDE,CO2 27 mmol/L (21-32); CHLORIDE,CL 102 mEq/L (98-106); CREATININE 2.1 mg/dL (0.7-1.3); GLUCOSE RANDOM 205 mg/dL (75-99); POTASSIUM,K 4.5 mEq/L (3.5-5.0); PRO B-TYPE NATRIUR PEPT,BNPPRO 927 pg/mL (0-1000); SODIUM,NA 141 mEq/L (136-145)
[2023-12-09 12:51] LABS: ESTIMATED GFR 31 mL/min (>=60)
[2023-12-09] MEDS ORDERED: Polyethylene Glycol 3350 Powder 17 GM Packet PO PRN (14:57)
[2023-12-09] MEDS ORDERED: Docusate Sodium 100 MG Cap PO PRN (14:57)
[2023-12-09] MEDS ORDERED: [UNRECOGNIZED DRUG - REMARK] SCH (15:00)
[2023-12-09] MEDS: Sodium Chloride 0.9% 1,000 ML IV STA (15:51)
[2023-12-09] MEDS: Warfarin 2 MG Tab PO ONE (16:58)
[2023-12-09 17:09] LABS: APPEARANCE,URINE CLEAR (CLEAR); BILIRUBIN,URINE NEGATIVE (NEGATIVE); COLOR,URINE YELLOW (YELLOW); GLUCOSE,URINE NEGATIVE (NEGATIVE); KETONES,URINE NEGATIVE (NEGATIVE); NITRITE,URINE NEGATIVE (NEGATIVE); OCCULT BLOOD,URINE LARGE (NEGATIVE); PH,URINE 7.5 (4.5-8.0); PROTEIN,URINE NEGATIVE (NEGATIVE); UROBILINOGEN,URINE 0.2 EU/dL (0.2-1.0)
[2023-12-09 17:11] LABS: LEUKOCYTE ESTERASE,URINE NEGATIVE (NEGATIVE)
[2023-12-09] MEDS ORDERED: Acetaminophen/HYDROcodone 325-5 MG Tab PO PRN (17:35)
[2023-12-09] MEDS: Metoprolol Tartrate 50 MG Tab PO SCH (20:05)
[2023-12-09] MEDS: cloNIDine 0.1 MG Tab PO SCH (20:05)
[2023-12-09] MEDS: Mupirocin Oint 22 GM Tube TOP SCH (20:06)
[2023-12-09] MEDS: Simvastatin 40 MG Tab PO SCH (20:06)
[2023-12-09] MEDS: Latanoprost 0.005% Ophth Soln 2.5 ML Bottle EYEBOTH SCH (20:06)
[2023-12-09] MEDS: Docusate Sodium 100 MG Cap PO SCH (20:06)
[2023-12-09] MEDS: Albuterol/Ipratropium 3.0-0.5 MG/3 ML Neb Soln INH SCH (20:07)
[2023-12-09] MEDS: Non-Formulary Medication 1 Each (Potassium Citrate [Urocit-K] 10 MEQ Tablet.Er) PO SCH (20:29)
[2023-12-10 07:49] LABS: INR 1.2 (0.92-1.18); PROTHROMBIN TIME 12.5 SEC (9.3-11.3)
[2023-12-10] MEDS: Furosemide 40 MG Tab PO SCH (07:52)
[2023-12-10 07:54] LABS: BASOPHILS ABSOLUTE AUTO 0.02 10^3/uL (0.00-0.50); BASOPHILS PERCENT AUTO 0.6 % (0-1); EOSINOPHILS ABSOLUTE AUTO 0.11 10^3/uL (0.00-1.50); EOSINOPHILS PERCENT AUTO 3.5 % (0-6); HEMATOCRIT 24.5 % (42.0-52.0); IMMATURE GRAN ABSOLUTE AUTO 0.01 10^3/uL (0.00-0.49); IMMATURE GRAN PERCENT AUTO 0.3 % (0.0-4.9); LYMPHOCYTES ABSOLUTE AUTO 0.99 10^3/uL (0.60-5.00); LYMPHOCYTES PERCENT AUTO 31.8 % (24-44); MEAN CORPUSCULAR HEMOGLOBIN 26.6 pg (27.0-32.0); MEAN CORPUSCULAR HGB CONC 30.2 g/dL (32.0-36.0); MEAN CORPUSCULAR VOLUME 88.1 fL (83.0-97.0); MONOCYTES PERCENT AUTO 9.6 % (0-10); NEUTROPHILS ABSOLUTE AUTO 1.68 x10^3/uL (1.80-8.00); NEUTROPHILS PERCENT AUTO 54.2 % (41-71); PLATELET COUNT,PLT 88 10^3/uL (150-400); RED BLOOD CELL COUNT 2.78 x10^6/uL (4.50-6.00); WHITE BLOOD CELL COUNT,WBC 3.1 10^3/uL (4.0-11.0)
[2023-12-10] MEDS: Oxybutynin 5 MG Tab.ER PO SCH (07:54)
[2023-12-10] MEDS: Isosorbide Mononitrate 30 MG Tab.ER PO SCH (07:54)
[2023-12-10] MEDS: Pantoprazole 40 MG Tab.CR PO SCH (07:54)
[2023-12-10] MEDS: Cholecalciferol (Vitamin D3) 25 MCG Tab PO SCH (07:55)
[2023-12-10 08:06] LABS: CALCIUM 8.1 mg/dL (8.4-10.1); CREATININE 1.8 mg/dL (0.7-1.3); EST CRCL DRUG DOSING (CG) 29.58 mL/min; POTASSIUM,K 4.5 mEq/L (3.5-5.0)
[2023-12-10 08:14] LABS: HEMOGLOBIN 7.4 g/dL (14.0-18.0)
[2023-12-10] MEDS: LORazepam 0.5 MG Tab PO PRN (11:08)
[2023-12-10] MEDS: Furosemide 40 MG/4 ML VIAL IVPUSH ONE (11:58)
[2023-12-10] MEDS: Ciprofloxacin in D5W 400 MG in Premix Bag 1 BAG IV SCH (12:15)
[2023-12-10] MEDS: Sodium Chloride 0.9% 250 ML IV ONE (12:15)
[2023-12-10] MEDS: Acetaminophen 325 MG Tab PO PRN (13:29)
[2023-12-10] MEDS: Potassium Bicarbonate/Cit Ac 10 MEQ Effervescent Tab PO SCH (17:54)
[2023-12-10] MEDS: Pantoprazole 40 MG Vial IVPUSH SCH (20:28)
[2023-12-11 07:22] LABS: BASOPHILS ABSOLUTE AUTO 0.01 10^3/uL (0.00-0.50); BASOPHILS PERCENT AUTO 0.3 % (0-1); EOSINOPHILS PERCENT AUTO 2.9 % (0-6); HEMATOCRIT 26.3 % (42.0-52.0); HEMOGLOBIN 8.2 g/dL (14.0-18.0); IMMATURE GRAN ABSOLUTE AUTO 0.02 10^3/uL (0.00-0.49); IMMATURE GRAN PERCENT AUTO 0.6 % (0.0-4.9); LYMPHOCYTES ABSOLUTE AUTO 0.88 10^3/uL (0.60-5.00); LYMPHOCYTES PERCENT AUTO 25.7 % (24-44); MEAN CORPUSCULAR HEMOGLOBIN 26.9 pg (27.0-32.0); MEAN CORPUSCULAR HGB CONC 31.2 g/dL (32.0-36.0); MEAN CORPUSCULAR VOLUME 86.2 fL (83.0-97.0); MONOCYTES ABSOLUTE AUTO 0.34 10^3/uL (0.00-1.50); MONOCYTES PERCENT AUTO 9.9 % (0-10); NEUTROPHILS ABSOLUTE AUTO 2.08 x10^3/uL (1.80-8.00); NEUTROPHILS PERCENT AUTO 60.6 % (41-71); PLATELET COUNT,PLT 81 10^3/uL (150-400); RED BLOOD CELL COUNT 3.05 x10^6/uL (4.50-6.00); WHITE BLOOD CELL COUNT,WBC 3.4 10^3/uL (4.0-11.0)
[2023-12-11 07:33] LABS: CALCIUM 8.2 mg/dL (8.4-10.1); CREATININE 2.1 mg/dL (0.7-1.3); EST CRCL DRUG DOSING (CG) 25.36 mL/min; MAGNESIUM 1.9 mg/dL (1.8-2.4); POTASSIUM,K 4.1 mEq/L (3.5-5.0)
[2023-12-11 07:40] LABS: INR 1.15 (0.92-1.18)
[2023-12-11] MEDS: Tamsulosin 0.4 MG Cap.ER PO SCH (07:51)
[2023-12-11] MEDS: Fluconazole 100 MG Tab PO ONE (10:38)
[2023-12-11] MEDS: Apixaban 5 MG Tab PO SCH (11:28)
[2023-12-11] MEDS: guaiFENesin 200 MG Tab PO SCH (14:09)
[2023-12-11] MEDS: Sodium Chloride 0.65% Nasal Spray 45 ML Bottle NAS PRN (17:56)
[2023-12-12 07:20] LABS: BASOPHILS ABSOLUTE AUTO 0.02 10^3/uL (0.00-0.50); BASOPHILS PERCENT AUTO 0.6 % (0-1); EOSINOPHILS ABSOLUTE AUTO 0.11 10^3/uL (0.00-1.50); EOSINOPHILS PERCENT AUTO 3.3 % (0-6); HEMATOCRIT 26.8 % (42.0-52.0); HEMOGLOBIN 8.4 g/dL (14.0-18.0); IMMATURE GRAN ABSOLUTE AUTO 0.01 10^3/uL (0.00-0.49); IMMATURE GRAN PERCENT AUTO 0.3 % (0.0-4.9); LYMPHOCYTES PERCENT AUTO 27.3 % (24-44); MEAN CORPUSCULAR HGB CONC 31.3 g/dL (32.0-36.0); MEAN CORPUSCULAR VOLUME 86.2 fL (83.0-97.0); MONOCYTES ABSOLUTE AUTO 0.36 10^3/uL (0.00-1.50); MONOCYTES PERCENT AUTO 10.9 % (0-10); NEUTROPHILS PERCENT AUTO 57.6 % (41-71); PLATELET COUNT,PLT 74 10^3/uL (150-400); RED BLOOD CELL COUNT 3.11 x10^6/uL (4.50-6.00); WHITE BLOOD CELL COUNT,WBC 3.3 10^3/uL (4.0-11.0)
[2023-12-12 07:28] LABS: CALCIUM 8.3 mg/dL (8.4-10.1); EST CRCL DRUG DOSING (CG) 26.62 mL/min; POTASSIUM,K 3.9 mEq/L (3.5-5.0)
[2023-12-12] MEDS ORDERED: Fluconazole 100 MG Tab PO SCH (08:00)
[2023-12-12] MEDS: Ampicillin 1 GM Vial IVPUSH SCH (11:37)
[2023-12-13 11:35] VITALS: BP 120/60; PULSE 72
== END 2023-12-13 11:10 | disposition home or self-care (01) | DRG 699 ==
LOC: CC.LAB 11:21 → CC.CHC 11:21 → CC.MS 14:36 → UNDOADMOB 14:36 → CC.MS 14:57 → OBSVTOIN 12-10 11:10
PROVIDERS: ADMIT Nurse Practitioner; ATTEND Nurse Practitioner
DX: T83.511A Infection and inflammatory reaction due to indwelling urethral catheter, initial encounter (principal); E87.20 Acidosis, unspecified; I13.0 Hypertensive heart and chronic kidney disease with heart failure and stage 1 through stage 4 chronic kidney disease, or unspecified chronic kidney disease; N17.9 Acute kidney failure, unspecified; N18.4 Chronic kidney disease, stage 4 (severe); N39.0 Urinary tract infection, site not specified; I50.9 Heart failure, unspecified; E78.00 Pure hypercholesterolemia, unspecified; F41.9 Anxiety disorder, unspecified; I48.91 Unspecified atrial fibrillation; E11.22 Type 2 diabetes mellitus with diabetic chronic kidney disease; I25.2 Old myocardial infarction; D63.1 Anemia in chronic kidney disease; N40.1 Benign prostatic hyperplasia with lower urinary tract symptoms; N39.498 Other specified urinary incontinence; J20.9 Acute bronchitis, unspecified; R79.1 Abnormal coagulation profile; R31.9 Hematuria, unspecified; Z88.2 Allergy status to sulfonamides; Z88.5 Allergy status to narcotic agent; Z88.8 Allergy status to other drugs, medicaments and biological substances; Z98.49 Cataract extraction status, unspecified eye; Z79.899 Other long term (current) drug therapy
CPT/HCPCS: 36415; 36430; 71045; 71046; 74176; 80048; 81003; 83605; 83735; 83880; 84484; 85025; 85610; 86850; 86900; 86901; 86920; 86922; 87040; 87086; 87088; 87186; 93005; 94640; 96360; 96361; 97110-GP; 97162-GP; A9270-GY; C9113; G0378; J0290; J0744; J1940; J7030; J7050; J7620-GY; P9016

== ENCOUNTER 2025-04-23 09:47 | Inpatient (IN) | payer MEDICARE, MEDICAID ==
[2025-04-23] MEDS ORDERED: Sodium Chloride 0.9% 10 ML Syringe FLUSH PRN (10:08)
[2025-04-23 10:31] LABS: BASOPHILS ABSOLUTE AUTO 0.02 10^3/uL (0.00-0.50); BASOPHILS PERCENT AUTO 0.7 % (0-1); EOSINOPHILS ABSOLUTE AUTO 0.07 10^3/uL (0.00-1.50); EOSINOPHILS PERCENT AUTO 2.4 % (0-6); IMMATURE GRAN ABSOLUTE AUTO 0.03 10^3/uL (0.00-0.49); IMMATURE GRAN PERCENT AUTO 1.0 % (0.0-4.9); LYMPHOCYTES ABSOLUTE AUTO 0.83 10^3/uL (0.60-5.00); LYMPHOCYTES PERCENT AUTO 27.9 % (24-44); MONOCYTES ABSOLUTE AUTO 0.25 10^3/uL (0.00-1.50); MONOCYTES PERCENT AUTO 8.4 % (0-10); NEUTROPHILS ABSOLUTE AUTO 1.77 x10^3/uL (1.80-8.00); NEUTROPHILS PERCENT AUTO 59.6 % (41-71); PLATELET COUNT,PLT 84 10^3/uL (150-400); RED BLOOD CELL COUNT 3.55 x10^6/uL (4.50-6.00); WHITE BLOOD CELL COUNT,WBC 3.0 10^3/uL (4.0-11.0)
[2025-04-23 10:43] LABS: INR 1.04 (0.92-1.18); PTT,PARTIAL THROMBOPLSTIN TIME 23.4 SEC (20.0-30.0)
[2025-04-23 10:48] LABS: LACTIC ACID 3.3 mmol/L (0.4-2.0)
[2025-04-23 10:55] LABS: ALANINE AMINOTRANSFERASE,ALT 14.0 U/L (12-78); ASPARTATE AMNIOTRANSFERASE,AST 21.0 U/L (15-37); BILIRUBIN TOTAL 0.5 mg/dL (0.0-1.0); BLOOD UREA NITROGEN,BUN 21.0 mg/dL (7-18); CARBON DIOXIDE,CO2 27.0 mmol/L (21-32); CHLORIDE,CL 103.0 mEq/L (98-106); CREATINE KINASE,CK 65.0 U/L (35-232); CREATININE 2.1 mg/dL (0.7-1.3); EST CRCL DRUG DOSING (CG) 24.92 mL/min; GLUCOSE RANDOM 166.0 mg/dL (75-99); POTASSIUM,K 4.4 mEq/L (3.5-5.0); PRO B-TYPE NATRIUR PEPT,BNPPRO 658.0 pg/mL (0-1000); PROTEIN TOTAL,TP 6.4 g/dL (6.4-8.2); SODIUM,NA 142.0 mEq/L (136-145)
[2025-04-23 11:01] LABS: ESTIMATED GFR 31.0 mL/min (>=60)
[2025-04-23 11:14] LABS: APPEARANCE,URINE SLIGHTLY CLOUDY (CLEAR); GLUCOSE,URINE 100 mg/dL (NEGATIVE); OCCULT BLOOD,URINE LARGE (NEGATIVE)
[2025-04-23 11:21] LABS: EPITHELIAL CELLS,URINE NOT SEEN /HPF (NOT SEEN)
[2025-04-23] MEDS ORDERED: Ondansetron 4 MG Tab.DIS PO PRN (13:31)
[2025-04-23] MEDS: Potassium Chloride 20 MEQ Tab.ER PO SCH (20:11)
[2025-04-24 09:12] LABS: BASOPHILS ABSOLUTE AUTO 0.01 10^3/uL (0.00-0.50); BASOPHILS PERCENT AUTO 0.2 % (0-1); EOSINOPHILS ABSOLUTE AUTO 0.12 10^3/uL (0.00-1.50); EOSINOPHILS PERCENT AUTO 2.5 % (0-6); IMMATURE GRAN ABSOLUTE AUTO 0.03 10^3/uL (0.00-0.49); IMMATURE GRAN PERCENT AUTO 0.6 % (0.0-4.9); LYMPHOCYTES ABSOLUTE AUTO 1.85 10^3/uL (0.60-5.00); LYMPHOCYTES PERCENT AUTO 38.8 % (24-44); MONOCYTES ABSOLUTE AUTO 0.33 10^3/uL (0.00-1.50); MONOCYTES PERCENT AUTO 6.9 % (0-10); NEUTROPHILS ABSOLUTE AUTO 2.43 x10^3/uL (1.80-8.00); NEUTROPHILS PERCENT AUTO 51.0 % (41-71); PLATELET COUNT,PLT 101 10^3/uL (150-400); RED BLOOD CELL COUNT 3.88 x10^6/uL (4.50-6.00); WHITE BLOOD CELL COUNT,WBC 4.8 10^3/uL (4.0-11.0)
[2025-04-24 09:25] LABS: ALANINE AMINOTRANSFERASE,ALT 10.0 U/L (12-78); ASPARTATE AMNIOTRANSFERASE,AST 13.0 U/L (15-37); BILIRUBIN TOTAL 0.6 mg/dL (0.0-1.0); BLOOD UREA NITROGEN,BUN 20.0 mg/dL (7-18); CARBON DIOXIDE,CO2 26.0 mmol/L (21-32); CHLORIDE,CL 102.0 mEq/L (98-106); CREATININE 2.4 mg/dL (0.7-1.3); EST CRCL DRUG DOSING (CG) 21.8 mL/min; ESTIMATED GFR 26.0 mL/min (>=60); GLUCOSE RANDOM 178.0 mg/dL (75-99); POTASSIUM,K 4.0 mEq/L (3.5-5.0); PROTEIN TOTAL,TP 6.3 g/dL (6.4-8.2); SODIUM,NA 140.0 mEq/L (136-145)
[2025-04-25 06:44] LABS: APPEARANCE,URINE CLEAR (CLEAR); GLUCOSE,URINE NEGATIVE (NEGATIVE); OCCULT BLOOD,URINE LARGE (NEGATIVE)
[2025-04-25 07:04] LABS: EPITHELIAL CELLS,URINE NOT SEEN /HPF (NOT SEEN)
[2025-04-25 07:28] LABS: ALANINE AMINOTRANSFERASE,ALT 16.0 U/L (12-78); ASPARTATE AMNIOTRANSFERASE,AST 14.0 U/L (15-37); BILIRUBIN TOTAL 0.6 mg/dL (0.0-1.0); BLOOD UREA NITROGEN,BUN 20.0 mg/dL (7-18); CARBON DIOXIDE,CO2 28.0 mmol/L (21-32); CHLORIDE,CL 103.0 mEq/L (98-106); CREATININE 2.4 mg/dL (0.7-1.3); EST CRCL DRUG DOSING (CG) 21.8 mL/min; GLUCOSE RANDOM 150.0 mg/dL (75-99); POTASSIUM,K 3.8 mEq/L (3.5-5.0); PROTEIN TOTAL,TP 6.0 g/dL (6.4-8.2); SODIUM,NA 140.0 mEq/L (136-145)
[2025-04-25 07:33] LABS: BASOPHILS ABSOLUTE AUTO 0.03 10^3/uL (0.00-0.50); BASOPHILS PERCENT AUTO 0.8 % (0-1); EOSINOPHILS ABSOLUTE AUTO 0.14 10^3/uL (0.00-1.50); EOSINOPHILS PERCENT AUTO 3.8 % (0-6); IMMATURE GRAN ABSOLUTE AUTO 0.02 10^3/uL (0.00-0.49); IMMATURE GRAN PERCENT AUTO 0.5 % (0.0-4.9); LACTIC ACID 2.0 mmol/L (0.4-2.0); LYMPHOCYTES ABSOLUTE AUTO 1.34 10^3/uL (0.60-5.00); LYMPHOCYTES PERCENT AUTO 36.5 % (24-44); MONOCYTES ABSOLUTE AUTO 0.29 10^3/uL (0.00-1.50); MONOCYTES PERCENT AUTO 7.9 % (0-10); NEUTROPHILS ABSOLUTE AUTO 1.85 x10^3/uL (1.80-8.00); NEUTROPHILS PERCENT AUTO 50.5 % (41-71); PLATELET COUNT,PLT 81 10^3/uL (150-400); RED BLOOD CELL COUNT 3.34 x10^6/uL (4.50-6.00); WHITE BLOOD CELL COUNT,WBC 3.7 10^3/uL (4.0-11.0)
[2025-04-25 07:34] LABS: ESTIMATED GFR 26.0 mL/min (>=60)
[2025-04-25] MEDS: Sennosides/Docusate Sodium 50-8.6 MG Tab PO SCH (08:19)
[2025-04-25] MEDS: Ciprofloxacin in D5W 400 MG in Premix Bag 1 BAG IV SCH (12:03)
[2025-04-25] MEDS: Potassium Bicarbonate/Cit Ac 10 MEQ Effervescent Tab PO SCH (17:36)
[2025-04-25] MEDS: Insulin Glarg,Human.Rec.Analog 100 Unit/ML 10 ML Vial SUBCUT SCH (19:58)
[2025-04-26 11:47] VITALS: BP 93/39; PULSE 63
== END 2025-04-26 16:34 | disposition home or self-care (01) | DRG 690 ==
LOC: CC.ED 09:47 → CC.MS 11:57 → CC.ED 12:01 → UNDOADMIN 12:16 → CC.MS 12:16
PROVIDERS: ADMIT Nurse Practitioner; ATTEND Nurse Practitioner
DX: N30.01 Acute cystitis with hematuria (principal); R53.1 Weakness; N18.9 Chronic kidney disease, unspecified; E11.22 Type 2 diabetes mellitus with diabetic chronic kidney disease; N39.0 Urinary tract infection, site not specified; E86.0 Dehydration; C61 Malignant neoplasm of prostate; D63.1 Anemia in chronic kidney disease; I48.91 Unspecified atrial fibrillation; E11.40 Type 2 diabetes mellitus with diabetic neuropathy, unspecified; H91.90 Unspecified hearing loss, unspecified ear; H54.7 Unspecified visual loss; D69.6 Thrombocytopenia, unspecified; E78.00 Pure hypercholesterolemia, unspecified; D70.9 Neutropenia, unspecified; I12.9 Hypertensive chronic kidney disease with stage 1 through stage 4 chronic kidney disease, or unspecified chronic kidney disease; F41.9 Anxiety disorder, unspecified; Z79.01 Long term (current) use of anticoagulants; I10 Essential (primary) hypertension; Z91.81 History of falling; Z88.1 Allergy status to other antibiotic agents; Z88.2 Allergy status to sulfonamides; Z95.1 Presence of aortocoronary bypass graft; Z98.890 Other specified postprocedural states; Z88.5 Allergy status to narcotic agent; Z88.8 Allergy status to other drugs, medicaments and biological substances; Z79.4 Long term (current) use of insulin; Z79.899 Other long term (current) drug therapy
CPT/HCPCS: 36415; 71045; 80053; 81001; 82550; 82947; 83605; 83735; 83880; 84484; 85014; 85018; 85025; 85610; 85730; 86140; 87040; 87086; 93005; 93010; 96360; 96361; 97110-GP; 97161-GP; 99223; 99232; 99233; 99238; 99285-25; A9270-GY; J0696; J0744; J1815-GY; J7030

== ENCOUNTER 2025-05-06 15:01 | Observation (INO) | payer MEDICARE, MEDICAID ==
[2025-05-06] MEDS ORDERED: Ondansetron 4 MG/2 ML SDV IV PRN (15:42)
[2025-05-06] MEDS ORDERED: Ondansetron 4 MG Tab.DIS PO PRN (15:42)
[2025-05-06 18:23] LABS: APPEARANCE,URINE CLEAR (CLEAR); GLUCOSE,URINE NEGATIVE (NEGATIVE); OCCULT BLOOD,URINE NEGATIVE (NEGATIVE)
[2025-05-06 18:27] LABS: SQUAMOUS EPITHELIAL CELLS,UR OCCASIONAL /HPF (NOT SEEN)
[2025-05-06] MEDS: Potassium Chloride 10 MEQ Tab.ER PO SCH (21:47)
[2025-05-06] MEDS: Insulin Glarg,Human.Rec.Analog 100 Unit/ML 10 ML Vial SUBCUT SCH (22:02)
[2025-05-07] MEDS ORDERED: ALFUZOSIN HCL 10 MG PO SCH (08:00)
[2025-05-07 09:05] LABS: BASOPHILS ABSOLUTE AUTO 0.01 10^3/uL (0.00-0.50); BASOPHILS PERCENT AUTO 0.4 % (0-1); EOSINOPHILS ABSOLUTE AUTO 0.08 10^3/uL (0.00-1.50); EOSINOPHILS PERCENT AUTO 3.1 % (0-6); IMMATURE GRAN ABSOLUTE AUTO 0.01 10^3/uL (0.00-0.49); IMMATURE GRAN PERCENT AUTO 0.4 % (0.0-4.9); LYMPHOCYTES ABSOLUTE AUTO 0.78 10^3/uL (0.60-5.00); LYMPHOCYTES PERCENT AUTO 30.7 % (24-44); MONOCYTES ABSOLUTE AUTO 0.21 10^3/uL (0.00-1.50); MONOCYTES PERCENT AUTO 8.3 % (0-10); NEUTROPHILS ABSOLUTE AUTO 1.45 x10^3/uL (1.80-8.00); NEUTROPHILS PERCENT AUTO 57.1 % (41-71); PLATELET COUNT,PLT 83 10^3/uL (150-400); RED BLOOD CELL COUNT 3.15 x10^6/uL (4.50-6.00); WHITE BLOOD CELL COUNT,WBC 2.5 10^3/uL (4.0-11.0)
[2025-05-07 09:17] LABS: ALANINE AMINOTRANSFERASE,ALT 17.0 U/L (12-78); ASPARTATE AMNIOTRANSFERASE,AST 18.0 U/L (15-37); BILIRUBIN TOTAL 0.4 mg/dL (0.0-1.0); BLOOD UREA NITROGEN,BUN 28.0 mg/dL (7-18); CARBON DIOXIDE,CO2 29.0 mmol/L (21-32); CHLORIDE,CL 103.0 mEq/L (98-106); CREATININE 2.3 mg/dL (0.7-1.3); EST CRCL DRUG DOSING (CG) 22.75 mL/min; GLUCOSE RANDOM 199.0 mg/dL (75-99); POTASSIUM,K 3.8 mEq/L (3.5-5.0); PROTEIN TOTAL,TP 5.8 g/dL (6.4-8.2); SODIUM,NA 139.0 mEq/L (136-145)
[2025-05-07 09:25] LABS: ESTIMATED GFR 27.0 mL/min (>=60)
[2025-05-07] MEDS: Sennosides/Docusate Sodium 50-8.6 MG Tab PO SCH (09:56)
[2025-05-08 09:04] LABS: BASOPHILS ABSOLUTE AUTO 0.02 10^3/uL (0.00-0.50); BASOPHILS PERCENT AUTO 0.5 % (0-1); EOSINOPHILS ABSOLUTE AUTO 0.10 10^3/uL (0.00-1.50); EOSINOPHILS PERCENT AUTO 2.7 % (0-6); IMMATURE GRAN ABSOLUTE AUTO 0.01 10^3/uL (0.00-0.49); IMMATURE GRAN PERCENT AUTO 0.3 % (0.0-4.9); LYMPHOCYTES ABSOLUTE AUTO 1.33 10^3/uL (0.60-5.00); LYMPHOCYTES PERCENT AUTO 36.2 % (24-44); MONOCYTES ABSOLUTE AUTO 0.36 10^3/uL (0.00-1.50); MONOCYTES PERCENT AUTO 9.8 % (0-10); NEUTROPHILS ABSOLUTE AUTO 1.85 x10^3/uL (1.80-8.00); NEUTROPHILS PERCENT AUTO 50.5 % (41-71); PLATELET COUNT,PLT 89 10^3/uL (150-400); RED BLOOD CELL COUNT 3.51 x10^6/uL (4.50-6.00); WHITE BLOOD CELL COUNT,WBC 3.7 10^3/uL (4.0-11.0)
[2025-05-08 09:17] LABS: ALANINE AMINOTRANSFERASE,ALT 12.0 U/L (12-78); ASPARTATE AMNIOTRANSFERASE,AST 15.0 U/L (15-37); BILIRUBIN TOTAL 0.5 mg/dL (0.0-1.0); BLOOD UREA NITROGEN,BUN 29.0 mg/dL (7-18); CARBON DIOXIDE,CO2 24.0 mmol/L (21-32); CHLORIDE,CL 105.0 mEq/L (98-106); CREATININE 2.2 mg/dL (0.7-1.3); EST CRCL DRUG DOSING (CG) 23.79 mL/min; GLUCOSE RANDOM 154.0 mg/dL (75-99); POTASSIUM,K 4.2 mEq/L (3.5-5.0); PROTEIN TOTAL,TP 6.2 g/dL (6.4-8.2); SODIUM,NA 141.0 mEq/L (136-145)
[2025-05-08 09:21] LABS: ESTIMATED GFR 29.0 mL/min (>=60)
[2025-05-08 13:20] VITALS: BP 147/71; PULSE 69
== END 2025-05-08 13:27 | disposition home or self-care (01) ==
LOC: CC.MS 15:01 → UNDOADMOB 15:01 → INTOOBSV 15:01 → CC.MS 15:42
PROVIDERS: ADMIT Physician Assistant Medical; ATTEND Physician Assistant Medical
DX: E87.20 Acidosis, unspecified (principal); D64.9 Anemia, unspecified; R53.1 Weakness; E87.70 Fluid overload, unspecified; D72.819 Decreased white blood cell count, unspecified; I10 Essential (primary) hypertension; E78.00 Pure hypercholesterolemia, unspecified; Z79.4 Long term (current) use of insulin; Z88.8 Allergy status to other drugs, medicaments and biological substances; Z88.5 Allergy status to narcotic agent; Z88.2 Allergy status to sulfonamides; Z79.01 Long term (current) use of anticoagulants; Z79.899 Other long term (current) drug therapy; R79.89 Other specified abnormal findings of blood chemistry; Z92.89 Personal history of other medical treatment
CPT/HCPCS: 36415; 51702; 71046; 80048; 80053; 81001; 83605; 83880; 85025; 86140; 87040; 96360; 96361; 99223; 99233; 99239; A9270; G0378; J1815; J7030